=== PATIENT | male | born 1965 | race Caucasian/White ===

== ENCOUNTER 2017-09-11 11:13 | Emergency (ER) | payer SELFPAY ==
[~2017-09-11] VITALS: Ht 182.9 cm; Wt 111.0 kg
[~2017-09-11 11:13] MED LIST: KEFLEX500 MG OR; LORTAB 5 OR; NO HOME MEDS
[2017-09-11 12:00] LABS: HEMATOCRIT 44.7 % (39.0-50.0); HEMOGLOBIN 15.2 g/dl (14.0-18.0); IMMATURE GRANULOCYTES 0.3 % (0.0-1.0); MEAN CORPUSCULAR HGB 31.3 pG CALC (26.0-32.0); NEUT# 8.19 thou/uL (1.82-7.42); RED BLOOD COUNT 4.86 mill/uL (4.70-6.10); RED CELL DISTRI WIDTH 12.3 % (11.5-15.5)
[2017-09-11 12:16] LABS: ALBUMIN 4.2 g/dL (3.2-5.0); ALKALINE PHOSPHATASE 93 u/l (38-126); AMYLASE 54 u/l (30-110); ANION GAP 15 (6-22 (CALC)); BILIRUBIN, TOTAL 1.1 mg/dL (0.0-1.4); BUN 11 mg/dL (9-20); BUN/CREATININE RATIO 13 (12-20 (CALC)); CALCIUM 9.4 mg/dL (8.4-10.2); CARBON DIOXIDE 25 mmol/l (22-30); CHLORIDE 102 mmol/l (95-108); CREATININE 0.9 mg/dL (0.7-1.3); GFR > 60 ML/MIN (>=60 (CALC)); GFR FOR AFR.AMER. > 60 ML/MIN (>=60 (CALC)); GLUCOSE 202 mg/dL (75-110); LIPASE 152 u/l (23-300); POTASSIUM 4.4 mmol/l (3.5-5.1); SGOT/AST 23 u/l (17-59); SGPT/ALT 29 u/l (21-72); SODIUM 137 mmol/l (137-146); TOTAL PROTEIN 7.8 g/dL (6.3-8.2)
[2017-09-11] MEDS ORDERED: ULTRAM50 M1 PO (14:41)
[2017-09-11 14:44] VITALS: BP 140/78
[2017-09-11 14:51] LABS: URINE BILIRUBIN - DIPSTICK NEGATIVE (NEGATIVE); URINE BLOOD DIPSTICK NEGATIVE (NEGATIVE); URINE CLARITY CLEAR; URINE COLOR YELLOW; URINE GLUCOSE - DIPSTICK NEGATIVE (NEGATIVE); URINE KETONE NEGATIVE (NEGATIVE); URINE LEUK ESTERASE NEGATIVE (NEGATIVE); URINE NITRITE - DIPSTICK NEGATIVE (Negative); URINE PROTEIN - DIPSTICK NEGATIVE (NEG-TRACE)
== END 2017-09-11 15:16 | disposition home or self-care (01) | DRG 563 ==
LOC: ED 11:13
PROVIDERS: Emergency Medicine
DX: S39.012A Strain of muscle, fascia and tendon of lower back, initial encounter (principal); E11.65 Type 2 diabetes mellitus with hyperglycemia; Z85.038 Personal history of other malignant neoplasm of large intestine; X58.XXXA Exposure to other specified factors, initial encounter; R33.9 Retention of urine, unspecified; R20.0 Anesthesia of skin
CPT/HCPCS: Q9967

== ENCOUNTER 2018-05-07 19:38 | Emergency (ER) | payer SELFPAY ==
[~2018-05-07] VITALS: Ht 182.9 cm; Wt 110.2 kg
[~2018-05-07 19:38] MED LIST changes: +ULTRAM50 M1 PO
[2018-05-07 21:09] LABS: HEMATOCRIT 43.9 % (39.0-50.0); IMMATURE GRANULOCYTES 0.5 % (0.0-1.0); MEAN CELL VOLUME 90.7 fL CALC (80.0-100.0); MEAN CORPUSCULAR HGB CONC 34.2 g/L CALC (32.0-36.0); NEUT# 7.45 thou/uL (1.82-7.42); RED BLOOD COUNT 4.84 mill/uL (4.70-6.10); RED CELL DISTRI WIDTH 12.5 % (11.5-15.5)
[2018-05-07 21:19] LABS: ALBUMIN 4.3 g/dL (3.2-5.0); ALKALINE PHOSPHATASE 92 u/l (38-126); ANION GAP 15 (6-22 (CALC)); BILIRUBIN, TOTAL 0.3 mg/dL (0.0-1.4); BUN 26 mg/dL (9-20); BUN/CREATININE RATIO 23 (12-20 (CALC)); CARBON DIOXIDE 22 mmol/l (22-30); CHLORIDE 106 mmol/l (95-108); CREATININE 1.1 mg/dL (0.7-1.3); GFR > 60 ML/MIN (>=60 (CALC)); GFR FOR AFR.AMER. > 60 ML/MIN (>=60 (CALC)); POTASSIUM 4.4 mmol/l (3.5-5.1); SGOT/AST 22 u/l (17-59); SGPT/ALT 37 u/l (21-72); SODIUM 139 mmol/l (137-146); TOTAL PROTEIN 7.9 g/dL (6.3-8.2)
[2018-05-07 21:43] LABS: URINE BILIRUBIN - DIPSTICK NEGATIVE (NEGATIVE); URINE BLOOD DIPSTICK TRACE-LYSED (NEGATIVE); URINE COLOR YELLOW; URINE GLUCOSE - DIPSTICK NEGATIVE (NEGATIVE); URINE KETONE NEGATIVE (NEGATIVE); URINE LEUK ESTERASE NEGATIVE (NEGATIVE); URINE NITRITE - DIPSTICK NEGATIVE (Negative); URINE PROTEIN - DIPSTICK NEGATIVE (NEG-TRACE); URINE SPECIFIC GRAVITY >=1.030; URINE UROBILINOGEN - DIPSTICK 0.2 E.U./dL (0.2)
[2018-05-07 21:47] LABS: COCAINE NEGATIVE (NEGATIVE); TETRAHYDROCANNABIONOL POSITIVE (NEGATIVE)
[2018-05-07 21:48] LABS: BARBITURATES NEGATIVE (NEGATIVE); METHADONE NEGATIVE (NEGATIVE); OXCYCODONE NEGATIVE (NEGATIVE); TRICYLIC ANTIDEPRESSANTS NEGATIVE (NEGATIVE); URINE CLARITY CLEAR
[2018-05-07] MEDS ORDERED: KEPPRA500 M2 PO (22:13)
[2018-05-07] MEDS ORDERED: MIRALAX3350 N1 PO (22:13)
[2018-05-07] MEDS ORDERED: NAPROSYN500 MG PO (22:13)
[2018-05-07 23:00] VITALS: BP 145/96
== END 2018-05-07 23:09 | disposition home or self-care (01) | DRG 101 ==
LOC: ED 19:38
PROVIDERS: Emergency Medicine
DX: G40.909 Epilepsy, unspecified, not intractable, without status epilepticus (principal); K59.00 Constipation, unspecified; Z91.14 Patient's other noncompliance with medication regimen
CPT/HCPCS: J1953

== ENCOUNTER 2020-08-16 17:16 | Emergency (ER) | payer MEDICAID ==
[~2020-08-16] VITALS: Ht 182.9 cm; Wt 122.7 kg
[~2020-08-16 17:16] MED LIST changes: +KEPPRA500 M2 PO; +MIRALAX3350 N1 PO; +NAPROSYN500 MG PO
[2020-08-16 18:51] LABS: HEMATOCRIT 45.8 % (39.0-50.0); HEMOGLOBIN 14.7 g/dl (14.0-18.0); IMMATURE GRANULOCYTES 0.3 % (0.0-5.0); MEAN CELL VOLUME 88.6 fL CALC (80.0-100.0); MEAN CORPUSCULAR HGB 28.4 pG CALC (26.0-32.0); MEAN CORPUSCULAR HGB CONC 32.1 g/dL CAL (32.0-36.0); NEUT# 8.47 thou/uL (1.82-7.42); RED BLOOD COUNT 5.17 mill/uL (4.70-6.10); RED CELL DISTRI WIDTH 12.6 % (11.5-15.5)
[2020-08-16 18:57] LABS: ALBUMIN 4.1 g/dL (3.2-5.0); ALKALINE PHOSPHATASE 137 u/l (38-126); ANION GAP 12 (6-22 (CALC)); BILIRUBIN, TOTAL 0.8 mg/dL (0.0-1.4); BUN 20 mg/dL (9-20); BUN/CREATININE RATIO 18 (12-20 (CALC)); CARBON DIOXIDE 25 mmol/l (22-30); CHLORIDE 100 mmol/l (95-108); CREATININE 1.1 mg/dL (0.7-1.3); GFR > 60 ML/MIN (>=60 (CALC)); GFR FOR AFR.AMER. > 60 ML/MIN (>=60 (CALC)); LIPASE 347 u/l (23-300); POTASSIUM 4.5 mmol/l (3.5-5.1); SGOT/AST 28 u/l (17-59); SODIUM 132 mmol/l (137-146)
[2020-08-16 20:32] LABS: URINE BILIRUBIN - DIPSTICK NEGATIVE (NEGATIVE); URINE BLOOD DIPSTICK SMALL (NEGATIVE); URINE COLOR YELLOW; URINE GLUCOSE - DIPSTICK NEGATIVE (NEGATIVE); URINE KETONE NEGATIVE (NEGATIVE); URINE LEUK ESTERASE NEGATIVE (NEGATIVE); URINE NITRITE - DIPSTICK NEGATIVE (Negative); URINE PH 6.5 (4.5-8.0); URINE PROTEIN - DIPSTICK 30 mg/dL (NEG-TRACE); URINE UROBILINOGEN - DIPSTICK 0.2 E.U./dL (0.2)
[2020-08-16 20:43] LABS: URINE WBC 0-2 WBC/hpf (0-5)
[2020-08-16] MEDS ORDERED: ULTRAM50 M1 PO (21:04)
[2020-08-16 21:37] VITALS: BP 139/92
== END 2020-08-16 21:37 | disposition home or self-care (01) ==
LOC: ED 17:16
PROVIDERS: Family Medicine
DX: R10.84 Generalized abdominal pain (principal); I10 Essential (primary) hypertension; R73.9 Hyperglycemia, unspecified; N28.1 Cyst of kidney, acquired; K57.30 Diverticulosis of large intestine without perforation or abscess without bleeding
CPT/HCPCS: Q9967

== ENCOUNTER 2020-09-07 13:10 | Observation (INO) | payer MEDICAID ==
[~2020-09-07] VITALS: Ht 182.9 cm; Wt 120.2 kg
--- NOTE | 2020-09-07 13:10 | NUR ---
TO ROOM VIA W/C AOX4
--- NOTE | 2020-09-07 14:00 | NUR ---
PT PRESENTS WITH ABD PAIN OF 10/10 IN THE RUQ. HE STATES THAT HE HAS HAD CHRONIC PAIN FOR THE LAST 6-9 MO BECAUSE OF HIS INFLAMMED GALLBLADDER. "i NEED TO GET A SURG BAD, NO ONE LISTENS" AFIBRILE. PT HAS LABORED BREATHING AND HE RELATES THAT TO THE INTERM PAIN. DENIES ANY OTHER S/S OR PAINS EXCEPT FOR INTERM NAUSEA. AOX4. [facility]
[2020-09-07 14:32] LABS: HEMATOCRIT 42.3 % (39.0-50.0); HEMOGLOBIN 13.6 g/dl (14.0-18.0); IMMATURE GRANULOCYTES 0.3 % (0.0-5.0); MEAN CELL VOLUME 90.6 fL CALC (80.0-100.0); MEAN CORPUSCULAR HGB 29.1 pG CALC (26.0-32.0); MEAN CORPUSCULAR HGB CONC 32.2 g/dL CAL (32.0-36.0); NEUT# 11.76 thou/uL (1.82-7.42); RED BLOOD COUNT 4.67 mill/uL (4.70-6.10); RED CELL DISTRI WIDTH 12.8 % (11.5-15.5)
[2020-09-07 14:57] LABS: ALKALINE PHOSPHATASE 126 u/l (38-126); AMYLASE 57 u/l (30-110); ANION GAP 12 (6-22 (CALC)); BILIRUBIN, TOTAL 0.5 mg/dL (0.0-1.4); BUN 17 mg/dL (9-20); BUN/CREATININE RATIO 16 (12-20 (CALC)); CARBON DIOXIDE 27 mmol/l (22-30); CHLORIDE 99 mmol/l (95-108); CREATININE 1.1 mg/dL (0.7-1.3); GFR > 60 ML/MIN (>=60 (CALC)); GFR FOR AFR.AMER. > 60 ML/MIN (>=60 (CALC)); LIPASE 129 u/l (23-300); SGOT/AST 21 u/l (17-59); SODIUM 134 mmol/l (137-146); TOTAL PROTEIN 7.8 g/dL (6.3-8.2)
--- NOTE | 2020-09-07 15:00 | NUR ---
WHEN i WAS ASSESSING PT FOR NEEDS HE RESUMED TO START ASKING ME ABOUT MR. RICHIE VIEIRA. HE ASKED ABOUT HIS WHERE ABOUTS AND WHEN DID I LAST SEE HIM. I MENTIONED THAT I AM NOT SURE, HE CONTINUED TO STATE THAT HE HEARD HIM ON THE RADIO AND THAT "I CANNOT STAND TO HEAR THAT VASYLFKER. HE TALKS A LOT OF SH*T" PT CONTINUED ON AND ON WITH DIALOG ALONG THOSE LINES OF HOW MUCH HE HATES HIM AND THAT THE THINGS HE SAYS ARE "BULLST". I WAS CONCERNED BECAUSE OF THE AGGRESIVENESS AND ANGER PT HAD. CHARGE NURSE LAZARO WAS UPDATED ON MY CONCERNS.
[2020-09-07 15:10] LABS: MYOGLOBIN 28 ng/mL (0 - 121)
[2020-09-07 15:28] LABS: URINE BILIRUBIN - DIPSTICK NEGATIVE (NEGATIVE); URINE BLOOD DIPSTICK TRACE-INTACT (NEGATIVE); URINE COLOR YELLOW; URINE GLUCOSE - DIPSTICK 100 mg/dL (NEGATIVE); URINE KETONE NEGATIVE (NEGATIVE); URINE LEUK ESTERASE NEGATIVE (NEGATIVE); URINE NITRITE - DIPSTICK NEGATIVE (Negative); URINE PH 6.5 (4.5-8.0); URINE PROTEIN - DIPSTICK TRACE mg/dL (NEG-TRACE); URINE SPECIFIC GRAVITY 1.015; URINE UROBILINOGEN - DIPSTICK 0.2 E.U./dL (0.2)
--- NOTE | 2020-09-07 16:00 | NUR ---
PT RESTING WITH EYES CLOSED. CALL LIGHT WITHIN REACH
--- NOTE | 2020-09-07 17:30 | NUR ---
PT RESTING ON STREATCHER RESTING WITH EYES CLOSED. CALL LIGHT WITHIN REACH
--- NOTE | 2020-09-07 18:46 | NUR ---
ATTEMPTED TO GIVE REPORT, NURSE SAYS SHE IS IN THE MIDDLE OF GETTING REPORT FROM DAYTIME NURSE
--- NOTE | 2020-09-07 18:56 | NUR ---
GAVE REPORT TO LUPE
--- NOTE | 2020-09-07 19:07 | NUR ---
Admission Note Report Given to: LULA DUFF Transported by: Wheelchair X Stretcher Transported with: X Nurse Transporter X Patent IV O2 X Laydown Machine Operator Location: ICU X MS2
[2020-09-07 19:21] VITALS: BP 164/110
--- NOTE | 2020-09-07 19:21 | NUR ---
PT ARRIVES TO UNIT AT 192 VIA STRETCHER, ACCOMPANIED BY Carlos MULLINS, ADMITTED TO ROOM 263.
--- NOTE | 2020-09-07 20:15 | NUR ---
ADMISSION AND PHYSICAL ASSESMENT COMPLETE. PT IS DROWSY BUT ROUSABLE. STATES "I DONT KNOW WHY IM SO TIRED". REPORTS LAST BM 3-4 DAYS AGO. REPORTS CONSTIPATION IS CHRONIC IN NATURE. REPORTS ANAL "PROTRUSION" THAT CAUSES HIM TO HAVE TO STRAIN HARD TO PASS STOOL. REPORTS RIGHT INGUINAL AND LEFT ABDOMINAL PROTRUSIONS. PT DESCRIBES PROTRUSIONS "HERNIAS". STATES HE HASN'T EATEN FOR 3-DAYS. OFFERED PT AFTER HOURS MEAL TRAY, PT DECLINES, STATES "I JUST NEED TO GO TO SLEEP". PT DENIES PAIN AT THIS TIME. DENIES FURTHER NEEDS. CALL MCDERMOTT WITHIN REACH, AGREES TO CALL PRN. BAD LOCKED IN LOW POSITION WITH BEDRAILS UP X2.
--- NOTE | 2020-09-07 21:01 | NUR ---
SPOKE W/ Latosha BUSH APRN REGARDING PT ASSESMENT AND ELEVATED NIBP. CLARIFICATION OF ORDERS RECEIVED TO [facility].
[2020-09-08] VITALS: BP 161/95
--- NOTE | 2020-09-08 00:46 | NUR ---
PT APPEARS TO BE SLEEPING COMFORTABLY, NO APPARENT DISTRESS, RESPIRATIONS REGULAR AND UNLABORED. CALL MCDERMOTT REMAINS WITHIN REACH. BED REMAINS LOCKED IN LOW POSITION WITH BEDRAILS UP X2.
[2020-09-08 04:00] VITALS: BP 147/90
[2020-09-08 05:40] LABS: HEMATOCRIT 43.5 % (39.0-50.0); MEAN CELL VOLUME 91.2 fL CALC (80.0-100.0); MEAN CORPUSCULAR HGB 29.4 pG CALC (26.0-32.0); MEAN CORPUSCULAR HGB CONC 32.2 g/dL CAL (32.0-36.0); RED BLOOD COUNT 4.77 mill/uL (4.70-6.10); RED CELL DISTRI WIDTH 12.7 % (11.5-15.5)
[2020-09-08 06:00] LABS: ALBUMIN 3.7 g/dL (3.2-5.0); ALKALINE PHOSPHATASE 122 u/l (38-126); ANION GAP 12 (6-22 (CALC)); BILIRUBIN, TOTAL 0.7 mg/dL (0.0-1.4); BUN 16 mg/dL (9-20); BUN/CREATININE RATIO 15 (12-20 (CALC)); CALCULATED LDLCHOLESTEROL 161 mg/dL (62-129 (CALC)); CARBON DIOXIDE 27 mmol/l (22-30); CHLORIDE 99 mmol/l (95-108); CHOLESTEROL HDL RATIO 6.2 (<4.4 (CALC)); CREATININE 1.1 mg/dL (0.7-1.3); GFR > 60 ML/MIN (>=60 (CALC)); GFR FOR AFR.AMER. > 60 ML/MIN (>=60 (CALC)); HDL CHOLESTEROL 37 mg/dL (>=40); POTASSIUM 4.3 mmol/l (3.5-5.1); SGOT/AST 19 u/l (17-59); SODIUM 134 mmol/l (137-146); TOTAL CHOLESTEROL 228 mg/dl (0-199); TOTAL PROTEIN 6.8 g/dL (6.3-8.2); TOTAL TRIGLYCERIDES 148 mg/dl (30-149); VLDL CHOLESTROL 30 mg/dl (8-62 (CALC))
--- NOTE | 2020-09-08 07:15 | NUR ---
REPORT RECEIVED FROM LULA DUFF;PT APPEARS TO BE SLEEPING IN SUPINE POSITION;NO S/S OF DISTRESS NOTED;RESPIRATIONS EVEN AND UNLABORED ON RA;TELE MONITORING IN PLACE;ALL SAFETY PRECAUTIONS IN PLACE WITH BED IN THE LOWEST POSITION AND CALL LIGHT IN REACH;WILL CONTINUE TO MONITOR
--- NOTE | 2020-09-08 08:39 | NUR ---
AT BEDSIDE DISCUSSING POC WITH PT.
[2020-09-08 08:43] VITALS: BP 161/111
--- NOTE | 2020-09-08 08:45 | NUR ---
PT RESTING IN SEMI FOWLERS POSITION,A&O X3;VS OBTAINED AND ASSESSMENT COMPLETED, CURRENT BP 161/111 HR 103;PT TO BE MEDICATED WITH MORNING BP MEDICATION PER ANRP;PT REPORTS ABDOMINAL PAIN AND REQUESTS PAIN MEDICATION, ANRP NOTIFIED OF REQUEST;PT CURRENTLY NPO AND VERBALIZES UNDERSTANDING;RESPIRATIONS EVEN AND UNLABORED ON RA,CLEAR LUNG SOUNDS;ABDOMEN DISTENDED/SOFT ON PALPATION AND ACTIVE IN ALL 4 QUADRANTS;STRONG PEDAL PULSES;SKIN INTACT;TELE MONITORING IN PLACE;#20G TO RIGHT HAND FLUSHED AND PATENT,SITE APPEARS HEALTHY;PT DENIES ANY ADDITIONAL NEEDS AT THIS TIME AND IS ENCOURAGED TO CALL FOR ASSISTANCE IF NEEDED;FALL PRECAUTIONS IN PLACE WITH BED IN THE LOWEST POSITION AND CALL LIGHT IN REACH;WILL CONTINUE TO MONITOR
[2020-09-08 10:24] VITALS: BP 133/95
--- NOTE | 2020-09-08 10:24 | NUR ---
BP RE-CHECK 133/95 HR 89
--- NOTE | 2020-09-08 11:15 | NUR ---
PT APPEARS TO BE SLEEPING IN SEMI FOWLERS POSITION;NO S/S OF DISTRESS NOTED;TELE MONITORING IN PLACE;IV SITE PATENT;NPO DIET REMAINS IN PLACE;ASSESSMENT REMAINS UNCHANGED AT THIS TIME;FALL PRECAUTIONS IN PLACE WITH BED IN THE LOWEST POSITION AND CALL LIGHT IN REACH;WILL CONTINUE TO MONITOR
--- NOTE | 2020-09-08 11:44 | NUR ---
LAB AT BEDSIDE
--- NOTE | 2020-09-08 11:55 | NUR ---
PT TRANSPORTED TO [facility] [place] IN STABLE CONDITION VIA WHEELCHAIR ACCOMPANIED BY KEEGAN FLOWER.
--- NOTE | 2020-09-08 12:20 | NUR ---
PT TRANSPORTED BACK TO MED/SURG ROOM 263 IN STABLE CONDITION VIA WHEELCHAIR ACCOMPANIED BY KEEGAN FLOWER.
--- NOTE | 2020-09-08 12:25 | NUR ---
PT REPORTS ABDOMINAL PAIN RATING 6/10 ON THE PAIN SCALE AND NAUSEA, PT MEDICATED WITH MORPHINE 4MG SLOW IVP AND ZOFRAN 4MG IVP AT THIS TIME;PT DENIES ANY ADDITIONAL NEEDS;CALL LIGHT IN REACH;WILL CONTINUE TO MONITOR
[2020-09-08 15:20] VITALS: BP 144/86
--- NOTE | 2020-09-08 15:25 | NUR ---
PT RESTING IN SEMI FOWLERS POSITION;RESPIRATIONS EVEN AND UNLABORED ON RA;PT REPORTS ABDOMINAL IS NOW A 2/10 AFTER PAIN MEDICATION ADMINISTRATION;IV SITE PATENT;TELE MONITORING IN PLACE;PT DENIES ANY ADDITIONAL NEEDS AT THIS TIME;FRESH WATER PROVIDED;ENCOURAGED TO CALL FOR ASSISTANCE IF NEEDED;FALL PRECAUTIONS REMAIN IN PLACE WITH CALL LIGHT IN REACH;WILL CONTINUE TO MONITOR
--- NOTE | 2020-09-08 15:45 | NUR ---
ANY ANRP AT BEDSIDE
[2020-09-08 19:00] VITALS: BP 139/97
--- NOTE | 2020-09-08 19:16 | NUR ---
REPORT FROM OCTAVIANO MAYORGA. PT UP IN SHOWER AT THIS TIME. DENIES ANY CURRENT NEEDS AT THIS TIME.
--- NOTE | 2020-09-08 21:18 | NUR ---
PT MEDICATED ORDERED. SNACK PROVIDED UPON REQUEST. NO OTHER WANTS OR NEEDS NOTED. PT TALKING ON PHONE AT THIS TIME. CALL LIGHT WITHIN REACH. WILL CONTINUE TO MONITOR.
[2020-09-09] VITALS: BP 146/106
--- NOTE | 2020-09-09 00:58 | NUR ---
PT RESTING IN BED WITH EYES CLOSED. NO APPARENT DISTRESS NOTED. REGIONAL SALES REPRESENTATIVE IN PLACE. CALL LIGHT WITHIN REACH. WILL CONTINUE TO MONITOR.
[2020-09-09 04:00] VITALS: BP 122/79
--- NOTE | 2020-09-09 04:17 | NUR ---
EMERGENCY MEDCL EMT IN ROOM TO OBTAIN LABS.
[2020-09-09 05:34] LABS: HEMATOCRIT 42.9 % (39.0-50.0); HEMOGLOBIN 13.7 g/dl (14.0-18.0); IMMATURE GRANULOCYTES 0.2 % (0.0-5.0); MEAN CELL VOLUME 91.9 fL CALC (80.0-100.0); MEAN CORPUSCULAR HGB 29.3 pG CALC (26.0-32.0); MEAN CORPUSCULAR HGB CONC 31.9 g/dL CAL (32.0-36.0); NEUT# 6.53 thou/uL (1.82-7.42); RED BLOOD COUNT 4.67 mill/uL (4.70-6.10); RED CELL DISTRI WIDTH 12.8 % (11.5-15.5)
[2020-09-09 05:53] LABS: ALBUMIN 3.5 g/dL (3.2-5.0); ALKALINE PHOSPHATASE 115 u/l (38-126); ANION GAP 12 (6-22 (CALC)); BUN 24 mg/dL (9-20); BUN/CREATININE RATIO 16 (12-20 (CALC)); CARBON DIOXIDE 30 mmol/l (22-30); CHLORIDE 98 mmol/l (95-108); CREATININE 1.4 mg/dL (0.7-1.3); GFR 53 ML/MIN (>=60 (CALC)); GFR FOR AFR.AMER. > 60 ML/MIN (>=60 (CALC)); POTASSIUM 4.6 mmol/l (3.5-5.1); SGOT/AST 18 u/l (17-59); SODIUM 135 mmol/l (137-146); TOTAL PROTEIN 6.5 g/dL (6.3-8.2)
[2020-09-09 05:54] LABS: BILIRUBIN, TOTAL 0.4 mg/dL (0.0-1.4)
[2020-09-09 08:00] VITALS: BP 150/80
--- NOTE | 2020-09-09 08:00 | NUR ---
PATIENT ASSESSMENT DONE AT THIS TIME SEE INTERVIENTION. UPON ENTERING ROOM IT WAS NOTICED THAT PATIENTS IV IN RIGHT HAND WAS DISLODGED AT THIS TIME. IV SITE HAS NO SIGNS OF SWELLING OR INFECTION. ANGELA ENCARNACION NOTIFIED AND STATED TO LEAVE IV OUT AT THIS TIME. PATIENT ALERT AND ORIENTED AND STATES PAIN LEVEL IS A 4 AND IS LOCATED IN HIS UPPER RT. QUAD. SCHUYLER WAS REPOSITIONED AT THIS TIME. STATED HE HASN'T HAD A BOWEL MOVEMENT IN A FEW DAYS BUT STATES " I HAVE GONE 10 DAYS BEFORE AND HAVE TO USE MY FINGER TO DIG IT OUT". PATIENT STATED "I HAVE GAS". PATIENT'S ABD. IS SOFT AND BOWEL SOUNDS PRESENT. IS AWARE OF PATIENT'S CONSTIPATION AND PATIENT IS BEING TREATED AT THIS TIME. PATIENT DENIES ALL OTHER COMPLAINTS AT THIS TIME.
[2020-09-09] MEDS ORDERED: METFORMIN500 M2 PO (10:18)
[2020-09-09] MEDS ORDERED: AMLODIPINE BESY10 MG PO ×2 (10:18→10:45)
[2020-09-09] MEDS ORDERED: LISINOPRIL10 MG PO (10:45)
[2020-09-09 11:11] VITALS: BP 160/94
--- NOTE | 2020-09-09 13:51 | NUR ---
PATIENT LYING IN BED WITH EYES CLOSED. RESPIRATIONS EVEN AND UNLABORED AT THIS TIME. ALL SAFTEY MEASURES ARE IN PLACE. SIDERAILS UP X 2.
--- NOTE | 2020-09-09 15:15 | NUR ---
PATIENT UP TO BATHROOM AND REPORTS LARGE BM X4. STOOL LT. BROWN IN COLOR AND SOFT. PATIENT STATED "I FEEL MUCH BETTER" AT THIS TIME. PATIENT DENIES ANY NEEDS AT THIS TIME. PATIENT NOTED TO HAVE TELE MONITOR OFF AND REFUSES TO PUT IT BACK ON STATING "I'M LEAVING IN AN HOUR". ER (MONITORING SITE) NOTIFIED.
[2020-09-09 16:06] VITALS: BP 164/99
--- NOTE | 2020-09-09 16:33 | NUR ---
GONE OVER PATIENT DISCHARGE INFORMATION AND EDUCATION. PATIENT HANDED NEW MEDICATION PRESCRIPTIONS; NORVASC 5 MG, LISINOPRIL 10MG AND METFORMIN 500MG. PATIENT ADVISED THAT HE HAS A NUCLEAR MEDICINE TEST (HIDA) TO BE COMPLETED ON Saturday09-12-2020 AND TO CALL AT O800 AM TO VERIFY TIME. PATIENT REMINDED TO FOLLOW UP WITH ALL OUTSIDE APPOINTMENTS WRITTEN IN D/C PAPERWORK. PATIENT VERBALIZES ALL UNDERSTANDING OF DISCHARGE PAPERWORK AT THIS TIME AND DENIES ANY NEEDS.
--- NOTE | 2020-09-09 17:15 | NUR ---
PATIENT D/C AT THIS TIME AND TAKEN DOWNSTAIRS VIA WHEELCHAIR. PATIENT BELONGING WE OBTAINED BY PATIENT AND STATES " I HAVE EVERYTHING". PATIENT RELASED TO SON AT THIS TIME AND DENIES NO OTHER NEEDS.
== END 2020-09-09 17:15 | disposition home or self-care (01) ==
LOC: ED 13:10 → ED-I 17:48 → ED 17:56 → MS2 17:57
PROVIDERS: Emergency Medicine; Nurse Practitioner; Nurse Practitioner Family; ADMIT Internal Medicine; ATTEND Internal Medicine
DX: R07.9 Chest pain, unspecified (principal); R10.11 Right upper quadrant pain; E11.9 Type 2 diabetes mellitus without complications; I10 Essential (primary) hypertension; K59.00 Constipation, unspecified; R16.0 Hepatomegaly, not elsewhere classified; Z20.828 Contact with and (suspected) exposure to other viral communicable diseases
CPT/HCPCS: G0378; J1650; Q9967

== ENCOUNTER 2020-09-22 13:39 | Emergency (ER) | payer MEDICAID ==
[~2020-09-22] VITALS: Ht 182.9 cm; Wt 125.0 kg
[~2020-09-22 13:39] MED LIST changes: +AMLODIPINE BESY10 MG PO; +LISINOPRIL10 MG PO; +METFORMIN500 M2 PO
[2020-09-22] MEDS ORDERED: DICYCLOMINE20 MG PO (14:12)
[2020-09-22] MEDS ORDERED: TAMSULOSIN HCL0.4 MG PO (14:12)
[2020-09-22 15:37] LABS: HEMATOCRIT 42.2 % (39.0-50.0); HEMOGLOBIN 13.7 g/dl (14.0-18.0); IMMATURE GRANULOCYTES 0.2 % (0.0-5.0); MEAN CELL VOLUME 90.8 fL CALC (80.0-100.0); MEAN CORPUSCULAR HGB 29.5 pG CALC (26.0-32.0); MEAN CORPUSCULAR HGB CONC 32.5 g/dL CAL (32.0-36.0); NEUT# 6.17 thou/uL (1.82-7.42); RED BLOOD COUNT 4.65 mill/uL (4.70-6.10); RED CELL DISTRI WIDTH 12.7 % (11.5-15.5)
[2020-09-22 16:03] LABS: ALBUMIN 3.8 g/dL (3.2-5.0); BILIRUBIN, TOTAL 0.4 mg/dL (0.0-1.4); CREATININE 1.5 mg/dL (0.7-1.3); POTASSIUM 5.1 mmol/l (3.5-5.1); TOTAL PROTEIN 7.1 g/dL (6.3-8.2)
[2020-09-22 16:32] LABS: PROTHROMBIN TIME 10.3 SECONDS (9.0-12.5)
[2020-09-22 18:21] VITALS: BP 140/82
== END 2020-09-22 18:00 | disposition short-term general hospital (02) ==
LOC: ED 13:39
PROVIDERS: Family Medicine
DX: I20.0 Unstable angina (principal); I10 Essential (primary) hypertension; E11.9 Type 2 diabetes mellitus without complications; Z79.84 Long term (current) use of oral hypoglycemic drugs
CPT/HCPCS: J1644

== ENCOUNTER 2020-12-06 20:01 | Emergency (ER) | payer MEDICAID ==
[~2020-12-06] VITALS: Ht 182.9 cm; Wt 122.7 kg
[~2020-12-06 20:01] MED LIST changes: +DICYCLOMINE20 MG PO; +TAMSULOSIN HCL0.4 MG PO
[2020-12-06 20:57] LABS: HEMATOCRIT 41.2 % (39.0-50.0); HEMOGLOBIN 13.2 g/dl (14.0-18.0); IMMATURE GRANULOCYTES 0.3 % (0.0-5.0); MEAN CELL VOLUME 91.2 fL CALC (80.0-100.0); MEAN CORPUSCULAR HGB 29.2 pG CALC (26.0-32.0); NEUT# 10.13 thou/uL (1.82-7.42); RED BLOOD COUNT 4.52 mill/uL (4.70-6.10); RED CELL DISTRI WIDTH 12.9 % (11.5-15.5)
[2020-12-06 21:02] LABS: URINE BILIRUBIN - DIPSTICK NEGATIVE (NEGATIVE); URINE BLOOD DIPSTICK SMALL (NEGATIVE); URINE COLOR YELLOW; URINE GLUCOSE - DIPSTICK 100 mg/dL (NEGATIVE); URINE KETONE NEGATIVE (NEGATIVE); URINE LEUK ESTERASE NEGATIVE (NEGATIVE); URINE NITRITE - DIPSTICK NEGATIVE (Negative); URINE PROTEIN - DIPSTICK 30 mg/dL (NEG-TRACE); URINE SPECIFIC GRAVITY 1.025; URINE UROBILINOGEN - DIPSTICK 0.2 E.U./dL (0.2)
[2020-12-06 21:04] LABS: URINE RBC 0-2 RBC/hpf (0-5); URINE WBC 0-2 WBC/hpf (0-5)
[2020-12-06 21:15] LABS: ALBUMIN 3.8 g/dL (3.2-5.0); ALKALINE PHOSPHATASE 122 u/l (38-126); BUN 24 mg/dL (9-20); BUN/CREATININE RATIO 19 (12-20 (CALC)); CHLORIDE 100 mmol/l (95-108); CREATININE 1.3 mg/dL (0.7-1.3); GFR 57 ML/MIN (>=60 (CALC)); GFR FOR AFR.AMER. > 60 ML/MIN (>=60 (CALC)); POTASSIUM 4.3 mmol/l (3.5-5.1); SGOT/AST 23 u/l (17-59); SODIUM 136 mmol/l (137-146); TOTAL PROTEIN 7.4 g/dL (6.3-8.2)
[2020-12-06 21:17] LABS: ANION GAP 11 (6-22 (CALC)); BILIRUBIN, TOTAL 0.9 mg/dL (0.0-1.4); CARBON DIOXIDE 29 mmol/l (22-30)
[2020-12-06 21:27] LABS: MYOGLOBIN 40 ng/mL (0 - 121)
[2020-12-06] MEDS ORDERED: LISINOPRIL10 MG PO (22:06)
[2020-12-06] MEDS ORDERED: METFORMIN500 M2 PO (22:06)
[2020-12-06] MEDS ORDERED: AMLODIPINE BESY10 MG PO (22:06)
[2020-12-06 22:52] VITALS: BP 173/93
== END 2020-12-06 22:52 | disposition home or self-care (01) ==
LOC: ED 20:01
PROVIDERS: Emergency Medicine
DX: E11.65 Type 2 diabetes mellitus with hyperglycemia (principal); I10 Essential (primary) hypertension; Z79.84 Long term (current) use of oral hypoglycemic drugs; T42.76XA Underdosing of unspecified antiepileptic and sedative-hypnotic drugs, initial encounter; T46.5X6A Underdosing of other antihypertensive drugs, initial encounter; T38.3X6A Underdosing of insulin and oral hypoglycemic [antidiabetic] drugs, initial encounter; Z91.128 Patient's intentional underdosing of medication regimen for other reason; Z20.822 Contact with and (suspected) exposure to COVID-19

== ENCOUNTER 2021-05-25 14:38 | Observation (INO) | payer MEDICAID ==
[~2021-05-25] VITALS: Ht 182.9 cm; Wt 131.0 kg
--- NOTE | 2021-05-25 14:42 | NUR ---
TO ROOM FOR TRIAGE
[2021-05-25 15:15] LABS: HEMATOCRIT 45.5 % (39.0-50.0); IMMATURE GRANULOCYTES 0.3 % (0.0-5.0); MEAN CELL VOLUME 88.5 fL CALC (80.0-100.0); MEAN CORPUSCULAR HGB 29.2 pG CALC (26.0-32.0); NEUT# 8.02 thou/uL (1.82-7.42); RED BLOOD COUNT 5.14 mill/uL (4.70-6.10); RED CELL DISTRI WIDTH 12.9 % (11.5-15.5)
[2021-05-25 15:26] LABS: ALBUMIN 3.8 g/dL (3.2-5.0); ALKALINE PHOSPHATASE 118 u/l (38-126); ANION GAP 15 (6-22 (CALC)); BILIRUBIN, TOTAL 0.8 mg/dL (0.0-1.4); BUN 21 mg/dL (9-20); BUN/CREATININE RATIO 17 (12-20 (CALC)); CARBON DIOXIDE 26 mmol/l (22-30); CHLORIDE 98 mmol/l (95-108); CREATININE 1.3 mg/dL (0.7-1.3); GFR 57 ML/MIN (>=60 (CALC)); GFR FOR AFR.AMER. > 60 ML/MIN (>=60 (CALC)); POTASSIUM 4.7 mmol/l (3.5-5.1); SGOT/AST 22 u/l (17-59); SODIUM 134 mmol/l (137-146); TOTAL PROTEIN 7.2 g/dL (6.3-8.2)
--- NOTE | 2021-05-25 15:45 | NUR ---
RESTING QUIETLY, CALL MCDERMOTT AT BEDSIDE
--- NOTE | 2021-05-25 16:45 | NUR ---
RESP EASY, STABLE, CALL MCDERMOTT IN REACH
--- NOTE | 2021-05-25 17:45 | NUR ---
DR DUNCAN TO BEDSIDE TO DISCUSS FINDINGS.
--- NOTE | 2021-05-25 18:12 | NUR ---
PATIENT STATES HE DOES NOT KNOW WHAT MEDICATION HE TAKES FOR BLOOD PRESSURE. PHARMACY CONSULT PLACED.
--- NOTE | 2021-05-25 18:50 | NUR ---
PATIENT HAS HAD 1000 OF CLEAR YELLOW URINE OUT.
--- NOTE | 2021-05-25 19:00 | NUR ---
REPORT RECEIVED FROM Jozef ROTH RN, CARE OF PT ASSUMED AT THIS TIME.
--- NOTE | 2021-05-25 19:01 | NUR ---
TELEPHONE REPORT RECEIVED FROM Narayan KATZ RN IN ED. ROOM 289 PREPARED TO RECEIVE PT.
--- NOTE | 2021-05-25 19:02 | NUR ---
REPORT TO LULA DUFF AT THIS TIME.
--- NOTE | 2021-05-25 19:11 | NUR ---
PT ARRIVES TO UNIT @ 191 VIA STRETCHER ACCOMPANIED BY Narayan KATZ RN. PT TO ROOM 289. PT SET UP AND ORIENTED TO UNIT AND ROOM BY Marquita DEAN CNA.
[2021-05-25 19:12] VITALS: BP 173/91
--- NOTE | 2021-05-25 19:50 | NUR ---
ADMISSION AND ASSESMENT COMPLETED. PT IS A/O X3, PLEASANT AND COOPERATIVE AND TALKATIVE. ANSWERS QUESTIONS READILY. NO APPARENT RESPIRATORY DISTRESS OR INCREASED WORK OF BREATHING. REPORTS SOB WORSENS WITH EXERTION. LUNGS CLEAR, AUSCAULTATION LIMITED SECONDARY TO BODY HABITUS. LARGE ROUNDED ABD, SOFT, NON-TENDER. LARGE LEFT SIDE HERNIA. BOWEL SOUNDS ACTIVE. REPORTS NO BM X4 DAYS. PT STATES HERNIA OBSTRUCT ABILITY TO DEFECATE AND HE DIGITALLY REMOVES HIS STOOL ABOUT EVERY 6 DAYS. PT ALSO REPORT SLOW STREAM/ DIFFICULTY STARTING STREAM WHEN URINATING SECONDARY TO HERNIA. PT REPORTS HE HAS DISCUSSED THESE ISSUES WITH HIS PCP. NO EDEMA NOTED TO BLE, C/M/S INTACT. PT REQUESTS FOOD, DENIES FURTHER NEEDS. PLAN OF CARE REVIEWED, PT VERBALIZES UNDERSTANDING. CALL MCDERMOTT WITHIN REACH, AGREES TO CALL PRN.
--- NOTE | 2021-05-25 20:00 | NUR ---
POINT OF CARE GLUCOSE 152mg/dl REPORTED BY Marquita DEAN CNA.
--- NOTE | 2021-05-25 20:52 | NUR ---
SCHEDULED MEDICATION ADMINISTERED, SEE E-MAR.
[2021-05-25 22:58] LABS: URINE BILIRUBIN - DIPSTICK NEGATIVE (NEGATIVE); URINE BLOOD DIPSTICK TRACE-INTACT (NEGATIVE); URINE CLARITY CLEAR; URINE COLOR YELLOW; URINE GLUCOSE - DIPSTICK NEGATIVE (NEGATIVE); URINE KETONE NEGATIVE (NEGATIVE); URINE LEUK ESTERASE NEGATIVE (Negative); URINE NITRITE - DIPSTICK NEGATIVE (Negative); URINE PROTEIN - DIPSTICK NEGATIVE (NEG-TRACE); URINE UROBILINOGEN - DIPSTICK 0.2 E.U./dL (0.2)
[2021-05-25 23:30] VITALS: BP 130/68
--- NOTE | 2021-05-26 00:06 | NUR ---
Latosha THOMPSON INSTANT POTATO PROCESSOR IN ROOM TO COLLECT LAB WORK.
[2021-05-26 04:00] VITALS: BP 140/96
[2021-05-26 06:27] LABS: HEMATOCRIT 47.7 % (39.0-50.0); HEMOGLOBIN 15.6 g/dl (14.0-18.0); MEAN CELL VOLUME 88.2 fL CALC (80.0-100.0); MEAN CORPUSCULAR HGB 28.8 pG CALC (26.0-32.0); MEAN CORPUSCULAR HGB CONC 32.7 g/dL CAL (32.0-36.0); RED BLOOD COUNT 5.41 mill/uL (4.70-6.10); RED CELL DISTRI WIDTH 12.9 % (11.5-15.5)
[2021-05-26 06:42] LABS: ANION GAP 15 (6-22 (CALC)); BUN 24 mg/dL (9-20); BUN/CREATININE RATIO 17 (12-20 (CALC)); CALCULATED LDLCHOLESTEROL 179 mg/dL (62-129 (CALC)); CARBON DIOXIDE 26 mmol/l (22-30); CHLORIDE 98 mmol/l (95-108); CHOLESTEROL HDL RATIO 5.9 (<4.4 (CALC)); CREATININE 1.4 mg/dL (0.7-1.3); GFR 52 ML/MIN (>=60 (CALC)); GFR FOR AFR.AMER. > 60 ML/MIN (>=60 (CALC)); HDL CHOLESTEROL 43 mg/dL (>=40); MAGNESIUM 1.8 mg/dL (1.6-2.3); POTASSIUM 4.4 mmol/l (3.5-5.1); SODIUM 134 mmol/l (137-146); TOTAL CHOLESTEROL 254 mg/dl (0-199); TOTAL TRIGLYCERIDES 165 mg/dl (30-149); VLDL CHOLESTROL 33 mg/dl (8-62 (CALC))
--- NOTE | 2021-05-26 07:34 | NUR ---
PT note Patient is screened for PT intervention and no needs are identified at this time
[2021-05-26 08:10] VITALS: BP 160/76
--- NOTE | 2021-05-26 08:10 | NUR ---
PT LAYING IN BED. PATIENT ALERT AND ORIENTED. VITALS AND ASSESSMENT DONE. LUNGS SOUND CLEAR BILATERALLY. S1 AND S2 HEARD. PEDAL PULSES EQUALLY STRONG BILATERALLY. IV PATENT AND HEALTHY.
--- NOTE | 2021-05-26 08:20 | NUR ---
PT SLEEP WHEN ENTERED ROOM. VITAL AND ASSESSMENTS DONE. PT IS ALERT AND ORIENTED. LUNG SOUNDS CLEAR BILATERALLY. S1 AND S2 HEARD. PEDAL PULSES STRONG BILATERALLY. IV PATENT AND HEALTHY.
--- NOTE | 2021-05-26 09:50 | NUR ---
Stephan FERNANDEZ APRN AND DR ROBINS AT BEDSIDE DISCUSSING POC
[2021-05-26 11:00] VITALS: BP 122/94
--- NOTE | 2021-05-26 11:00 | NUR ---
[employer] RELEASE FORM SIGNED BY PATIENT, PT AGREEABLE TO OBTAIN MEDICAL RECORDS FROM [facility]. REQUEST FORM SENT TO [facility].
--- NOTE | 2021-05-26 12:00 | NUR ---
PATIENT IN BED. NO DISTRESS NOTED. CALL LIGHT WITHIN REACH.
[2021-05-26 14:53] VITALS: BP 121/82
--- NOTE | 2021-05-26 16:00 | NUR ---
PATIENT WAS SLEEP WHEN ENTERED ROOM. NO DISTRESS NOTED. CALL LIGHT WITHIN REACH.
--- NOTE | 2021-05-26 19:00 | NUR ---
REPORT RECEIVED FROM Jozef BAILEY RN, CARE OF PT ASSUMED AT THIS TIME.
[2021-05-26 19:20] VITALS: BP 118/73
--- NOTE | 2021-05-26 20:00 | NUR ---
PT LAYING IN BED, NO APPARENT DISTRESS. PHYSICAL ASSESMENT COMPLETED, SEE SHIFT ASSESMENT. RESPIRATIONS REGULAR AND UNLABORED. SPO2 94% ON ROOM AIR. LUNG SOUNDS CLEAR. TELE #[id number] ST 108 WITH PACs. L-FA #20G SL PATENT. POINT OF CARE GLUCOSE 192mg/dl. ICE CREAM CUP PROVIDED PER PTS REQUEST, PT DENIES FURTHER NEEDS AT THIS TIME. PLAN OF CARE REVIEWED, PT VERBALIZES UNDERSTANDING. CALL MCDERMOTT WITHIN REACH. AGREES TO CALL PRN.
--- NOTE | 2021-05-26 20:24 | NUR ---
SCHEDULED MEDICATIONS ADMINISTERED, SEE E-MAR. PRIOR TO ADMINISTRATION VERBAL EDUCATION PROVIDED ON MEDICATIONS. PT VERBALIZES UNDERSTANDING AND DENIES QUESTIONS.
[2021-05-26 22:50] VITALS: BP 131/85
--- NOTE | 2021-05-27 00:15 | NUR ---
PT APPEARS TO BE SLEEPING COMFORTABLY, LAYING IN BED WITH EYES CLOSED. RESPIRATIONS REGUALR AND UNLABORED, NO APPARENT DISTRESS OR DISCOMFORT. CALL MCDERMOTT REMAINS WITHIN REACH.
[2021-05-27 03:40] VITALS: BP 123/84
--- NOTE | 2021-05-27 04:08 | NUR ---
CALL RECEIVED FROM Omar PIEDRA, BOAT AND PLANT UTILITY SUPERVISOR @ 0404 PT CONVERTED TO SVT @ APPROX 0401. UPON ENTERING ROOM PT STATES HE JUST WOKE UP AND HE WAS HAVING A "CRAZY DREAM". DENIES PALPITATIONS OR ANY SYPMTOMOLOGY. PT IS INSTRUCTED ON PERFORMING VALSALVAS MANUVER. AT APPROX 0408 PT RETURNS TO BASELINE RYTHM OF SR-ST 90s-110s. Xuan VITALE AT BEDSIDE PERFORMING 12-LEAD EKG.
[2021-05-27 04:10] VITALS: BP 140/96
[2021-05-27 05:33] LABS: HEMATOCRIT 47.5 % (39.0-50.0); HEMOGLOBIN 15.6 g/dl (14.0-18.0); MEAN CELL VOLUME 88.5 fL CALC (80.0-100.0); MEAN CORPUSCULAR HGB 29.1 pG CALC (26.0-32.0); MEAN CORPUSCULAR HGB CONC 32.8 g/dL CAL (32.0-36.0); RED BLOOD COUNT 5.37 mill/uL (4.70-6.10); RED CELL DISTRI WIDTH 12.9 % (11.5-15.5)
[2021-05-27 05:50] LABS: ANION GAP 12 (6-22 (CALC)); BUN 30 mg/dL (9-20); BUN/CREATININE RATIO 21 (12-20 (CALC)); CARBON DIOXIDE 26 mmol/l (22-30); CHLORIDE 101 mmol/l (95-108); CREATININE 1.4 mg/dL (0.7-1.3); GFR 52 ML/MIN (>=60 (CALC)); GFR FOR AFR.AMER. > 60 ML/MIN (>=60 (CALC)); MAGNESIUM 1.9 mg/dL (1.6-2.3); POTASSIUM 4.8 mmol/l (3.5-5.1); SODIUM 134 mmol/l (137-146)
--- NOTE | 2021-05-27 06:04 | NUR ---
PT APPEARS TO BE SLEEPING COMFORTABLY, LAYING IN BED WITH EYES CLOSED. RESPIRATIONS REGUALR AND UNLABORED, NO APPARENT DISTRESS OR DISCOMFORT. CALL MCDERMOTT REMAINS WITHIN REACH.
[2021-05-27 07:20] VITALS: BP 144/88
--- NOTE | 2021-05-27 07:50 | NUR ---
PATIENT SLEEPING UPON ENTERING ROOM. VITALS AND ASSESSMENT PERFORMED.PT IS ALERT AND ORIENTED. S1 AND S2 NOTED. BOWEL SOUNDS ACTIVE. PEDAL PULSES BILATERALLY EQUAL AND STRONG. NO DISTRESS NOTED.
--- NOTE | 2021-05-27 10:03 | NUR ---
DR SETH AND Zoe MILLER APRN AT [facility] DISCUSSING POC
[2021-05-27 10:15] VITALS: BP 138/94
[2021-05-27] MEDS ORDERED: AMLODIPINE BESYL5 MG PO (10:18)
[2021-05-27] MEDS ORDERED: LISINOPRIL10 MG PO (10:18)
[2021-05-27] MEDS ORDERED: FARXIGA5 MG PO (10:18)
[2021-05-27] MEDS ORDERED: LASIX 20 MG TAB20 MG PO (10:18)
[2021-05-27] MEDS ORDERED: LIPITOR20 M1 PO (10:19)
[2021-05-27] MEDS ORDERED: ASPIRIN ADULT L81 M2 PO (10:25)
[2021-05-27] MEDS ORDERED: METOPROL TAR25 M1 PO (10:43)
--- NOTE | 2021-05-27 12:52 | NUR ---
PT ASLEEP WHEN ENTERED ROOM. NO DISTRESS NOTED. CALL LIGHT WITHIN REACH.
--- NOTE | 2021-05-27 15:30 | NUR ---
Discharge instructions given. Patient verbalizes understanding of same. Discharged in stable condition via Wheelchair to Home with staff. All belongings sent with pt. EDUCATION ON NEW MEDICATIONS GIVEN. EXPLAINED TO PT BP AND HEART RATE PARAMETERS WITH NEW MEDICATIONS.
== END 2021-05-27 15:30 | disposition home or self-care (01) ==
LOC: ED 14:38 → ED-I 17:30 → ED 17:45 → MS2 17:46
PROVIDERS: Family Medicine; Nurse Practitioner; ADMIT Internal Medicine; ATTEND Internal Medicine
DX: I13.0 Hypertensive heart and chronic kidney disease with heart failure and stage 1 through stage 4 chronic kidney disease, or unspecified chronic kidney disease (principal); I50.21 Acute systolic (congestive) heart failure; E11.22 Type 2 diabetes mellitus with diabetic chronic kidney disease; N18.30 Chronic kidney disease, stage 3 unspecified; I47.1 Supraventricular tachycardia; E78.5 Hyperlipidemia, unspecified; N40.0 Benign prostatic hyperplasia without lower urinary tract symptoms; Z79.84 Long term (current) use of oral hypoglycemic drugs; Z20.822 Contact with and (suspected) exposure to COVID-19
CPT/HCPCS: G0378; J1650; Q9967

== ENCOUNTER 2021-07-19 10:08 | Observation (INO) | payer MEDICAID ==
[~2021-07-19] VITALS: Ht 182.9 cm; Wt 102.1 kg
[~2021-07-19 10:08] MED LIST changes: +AMLODIPINE BESYL5 MG PO; +ASPIRIN ADULT L81 M2 PO; +FARXIGA5 MG PO; +LASIX 20 MG TAB20 MG PO; +LIPITOR20 M1 PO; +METOPROL TAR25 M1 PO
--- NOTE | 2021-07-19 11:15 | NUR ---
PATIENT COMPLAINING OF LEFT ARM PAIN AND LEFT SIDED ABDOMINAL PAIN, LOW BP 77/42. DR DUNCAN MADE AWARE.
--- NOTE | 2021-07-19 11:30 | NUR ---
EMS LITER OF FLUID INFUSED, SOCOND LITER STARTED NOW. BP 95/59. MONITORING AT BEDSIDE.
--- NOTE | 2021-07-19 11:48 | NUR ---
BP 110/85
[2021-07-19 12:16] LABS: IMMATURE GRANULOCYTES 0.2 % (0.0-5.0); MEAN CELL VOLUME 92.5 fL CALC (80.0-100.0); MEAN CORPUSCULAR HGB 29.9 pG CALC (26.0-32.0); MEAN CORPUSCULAR HGB CONC 32.3 g/dL CAL (32.0-36.0); NEUT# 12.33 thou/uL (1.82-7.42); RED BLOOD COUNT 4.42 mill/uL (4.70-6.10); RED CELL DISTRI WIDTH 12.5 % (11.5-15.5)
[2021-07-19 12:17] LABS: HEMATOCRIT 40.9 % (39.0-50.0); HEMOGLOBIN 13.2 g/dl (14.0-18.0)
[2021-07-19 12:29] LABS: ALBUMIN 3.7 g/dL (3.2-5.0); BILIRUBIN, TOTAL 0.6 mg/dL (0.0-1.4); CREATININE 2.4 mg/dL (0.7-1.3); POTASSIUM 4.7 mmol/l (3.5-5.1)
[2021-07-19] MEDS ORDERED: LISINOPRIL10 MG PO (13:42)
[2021-07-19] MEDS ORDERED: NORVASC PO (13:42)
[2021-07-19] MEDS ORDERED: ATORVASTATIN CA20 MG PO (13:43)
[2021-07-19] MEDS ORDERED: LOPRESSOR25 MG PO (13:43)
[2021-07-19] MEDS ORDERED: FARXIGA5 MG PO (13:43)
[2021-07-19] MEDS ORDERED: FUROSEMIDE20 MG PO (13:43)
[2021-07-19] MEDS ORDERED: EQ ASPIRIN81 MG PO (13:44)
[2021-07-19 13:54] LABS: URINE BILIRUBIN - DIPSTICK NEGATIVE (NEGATIVE); URINE BLOOD DIPSTICK NEGATIVE (NEGATIVE); URINE COLOR YELLOW; URINE GLUCOSE - DIPSTICK >=1000 mg/dL (NEGATIVE); URINE KETONE NEGATIVE (NEGATIVE); URINE LEUK ESTERASE NEGATIVE (NEGATIVE); URINE PROTEIN - DIPSTICK 30 mg/dL (NEG-TRACE); URINE SPECIFIC GRAVITY 1.025; URINE UROBILINOGEN - DIPSTICK 0.2 E.U./dL (0.2)
[2021-07-19 14:00] LABS: URINE NITRITE - DIPSTICK NEGATIVE (Negative)
[2021-07-19 14:10] LABS: URINE MUCUS FEW hpf (NONE-FEW)
--- NOTE | 2021-07-19 14:30 | NUR ---
PATIENT RESTING, EYES CLOSED, VSS. CONTINUING TO MONITOR. CALL MCDERMOTT IN REACH.
--- NOTE | 2021-07-19 15:48 | NUR ---
ATTEMPTED TO DOMINIK REPORT, ROBERT TO CALL ME BACK.
--- NOTE | 2021-07-19 17:00 | NUR ---
ATTEMPT TO CALL REPORT, WILMER TO CALL BACK.
--- NOTE | 2021-07-19 17:45 | NUR ---
REPORT TO SHREE
--- NOTE | 2021-07-19 18:05 | NUR ---
D/C instructions given with verbalization of understanding. Pt. discharged home in stable condition. AMBULATORY WITH CORRECTIONS
--- NOTE | 2021-07-19 18:10 | NUR ---
Admission Note Report Given to: Transported by: Wheelchair X Stretcher Transported with: X Nurse Transporter X Patent IV O2 X Hydrographical Technical Officer Location: ICU X MS2
[2021-07-19 19:00] VITALS: BP 146/50
[2021-07-20 04:00] VITALS: BP 159/86
--- NOTE | 2021-07-20 05:19 | NUR ---
PATIENT RESTED COMFORTABLY THROUGH THE NIGHT. NO COMPLAINTS OR CONCERNS
--- NOTE | 2021-07-20 05:20 | NUR ---
PATIENT FEVER STILL 99.4
[2021-07-20 06:28] LABS: HEMATOCRIT 42.5 % (39.0-50.0); HEMOGLOBIN 13.7 g/dl (14.0-18.0); MEAN CELL VOLUME 92.8 fL CALC (80.0-100.0); MEAN CORPUSCULAR HGB 29.9 pG CALC (26.0-32.0); MEAN CORPUSCULAR HGB CONC 32.2 g/dL CAL (32.0-36.0); RED BLOOD COUNT 4.58 mill/uL (4.70-6.10); RED CELL DISTRI WIDTH 12.6 % (11.5-15.5)
[2021-07-20 06:30] LABS: CREATININE 1.7 mg/dL (0.7-1.3); MAGNESIUM 1.9 mg/dL (1.6-2.3); POTASSIUM 4.6 mmol/l (3.5-5.1)
--- NOTE | 2021-07-20 06:45 | NUR ---
ER CALLED AND PATIENTS HEART RATE WAS IN THE 30'S. NURSE AT BEDSIDE AND PATIENT WAS ALSEEP AND EASILY ARROUSABLE
[2021-07-20 08:00] VITALS: BP 148/80
--- NOTE | 2021-07-20 08:00 | NUR ---
PATIENT ALERT, VERBAL, ABLE TO MAKE NEEDS KNOWN--ABLE TO TOLERATE MEDS WELL WHOLE. PIV SITE PATENT TO LAC AREA--FLUSHES WELL--SITE UNREMARKABLE. NS INFUSING @ 100ML/HR WITHOUT DIFFICULTY--TOLERATING FLUIDS WELL. CONT OF BOWEL AND BLADDER--ABLE TO AMBULATE ABOUT INDEPENDENTLY IN ROOM AD KARLOS. DENIES PAIN. TELEMETRY IN PLACE WITH SR/PACS @ 98. WILL CONT TO MONITOR FOR ANY FURTHER CHANGES.
[2021-07-20 11:25] VITALS: BP 159/98
--- NOTE | 2021-07-20 12:00 | NUR ---
PATIENT SEEN BY GETTER WELDER AT BEDSIDE--COMPLAINS OF HEADACHE AND ALL OVER DISCOMFORT WHICH IS HIS BASELINE HE STATES--MEW MED FIORICET GIVEN AT 11AM ORDERED--ALSO NOTED TO BE HAVING SOME HYPERTENSION--B/P 159/98--NEW ORDERS FOR LISINOPRIL/NORVASC ALSO IN PLACE AT THIS TIME. PATIENT TO BE DISCHARGED LATER TODAY LONG BP CAN BE STABILIZED. TELEMETRY IN PLACE WITH SINUS TACH @ 106 WELL. PIV SITE PATENT TO LEFT AC--NS INFUSING WELL @ 100ML/HR WELL--TOLERTING FLUIDS WELL. WILL CONT TO MONITOR FOR ANY FURTHER CHANGES.
[2021-07-20 12:29] VITALS: BP 159/98
--- NOTE | 2021-07-20 14:42 | NUR ---
Discharge instructions given. Patient verbalizes understanding of same. Discharged in fair condition via Wheelchair to *Other with *Other. All belongings sent with pt. Patient left facility via cab in route to his brother's house about two blocks from the facility.
== END 2021-07-20 14:45 | disposition home or self-care (01) ==
LOC: ED 10:08 → ED-I 12:35 → ED 14:22 → MS2 14:23
PROVIDERS: Family Medicine; Nurse Practitioner; ADMIT Internal Medicine; ATTEND Internal Medicine
DX: E86.0 Dehydration (principal); N28.9 Disorder of kidney and ureter, unspecified; I95.9 Hypotension, unspecified; I13.0 Hypertensive heart and chronic kidney disease with heart failure and stage 1 through stage 4 chronic kidney disease, or unspecified chronic kidney disease; I50.9 Heart failure, unspecified; E11.22 Type 2 diabetes mellitus with diabetic chronic kidney disease; N18.30 Chronic kidney disease, stage 3 unspecified; I25.10 Atherosclerotic heart disease of native coronary artery without angina pectoris; N40.0 Benign prostatic hyperplasia without lower urinary tract symptoms; E78.5 Hyperlipidemia, unspecified; Z79.84 Long term (current) use of oral hypoglycemic drugs; Z20.822 Contact with and (suspected) exposure to COVID-19
CPT/HCPCS: G0378; Q9967

== ENCOUNTER 2021-11-04 23:44 | Inpatient (IN) | payer MEDICAID ==
[~2021-11-04] VITALS: Ht 182.9 cm; Wt 136.0 kg
[~2021-11-04 23:44] MED LIST changes: +ATORVASTATIN CA20 MG PO; +EQ ASPIRIN81 MG PO; +FUROSEMIDE20 MG PO; +KEFLEX500 MG PO; +LOPRESSOR25 MG PO; +NORVASC PO
[2021-11-05 00:59] LABS: HEMATOCRIT 42.8 % (39.0-50.0); HEMOGLOBIN 13.9 g/dl (14.0-18.0); IMMATURE GRANULOCYTES 0.6 % (0.0-5.0); MEAN CELL VOLUME 90.7 fL CALC (80.0-100.0); MEAN CORPUSCULAR HGB 29.4 pG CALC (26.0-32.0); MEAN CORPUSCULAR HGB CONC 32.5 g/dL CAL (32.0-36.0); NEUT# 6.48 thou/uL (1.82-7.42); RED BLOOD COUNT 4.72 mill/uL (4.70-6.10); RED CELL DISTRI WIDTH 12.4 % (11.5-15.5)
[2021-11-05 01:04] LABS: ALBUMIN 3.3 g/dL (3.2-5.0); BILIRUBIN, TOTAL 0.5 mg/dL (0.0-1.4); CREATININE 1.5 mg/dL (0.7-1.3); POTASSIUM 4.3 mmol/l (3.5-5.1); TOTAL PROTEIN 6.8 g/dL (6.3-8.2)
[2021-11-05 02:51] LABS: URINE BILIRUBIN - DIPSTICK NEGATIVE (NEGATIVE); URINE BLOOD DIPSTICK TRACE-INTACT (NEGATIVE); URINE COLOR YELLOW; URINE GLUCOSE - DIPSTICK 250 mg/dL (NEGATIVE); URINE KETONE NEGATIVE (NEGATIVE); URINE LEUK ESTERASE NEGATIVE (NEGATIVE); URINE PROTEIN - DIPSTICK 30 mg/dL (NEG-TRACE); URINE SPECIFIC GRAVITY >=1.030; URINE UROBILINOGEN - DIPSTICK 0.2 E.U./dL (0.2)
[2021-11-05 02:59] LABS: URINE NITRITE - DIPSTICK NEGATIVE (Negative)
[2021-11-05 03:02] LABS: URINE EPITHELIAL CELLS FEW EPI/hpf (0-FEW)
[2021-11-05 03:04] LABS: URINE BACTERIA FEW hpf; URINE MUCUS MODERATE hpf (NONE-FEW)
[2021-11-05 07:36] VITALS: BP 155/84
[2021-11-05 11:36] VITALS: BP 166/122
[2021-11-05 12:00] VITALS: BP 156/98
[2021-11-05 15:15] VITALS: BP 137/98
[2021-11-05 19:00] VITALS: BP 139/94
[2021-11-06] VITALS (7 sets, daily range): BP systolic 116–166; BP diastolic 69–106
[2021-11-06 05:28] LABS: HEMATOCRIT 42.7 % (39.0-50.0); HEMOGLOBIN 13.8 g/dl (14.0-18.0); MEAN CELL VOLUME 91.6 fL CALC (80.0-100.0); MEAN CORPUSCULAR HGB 29.6 pG CALC (26.0-32.0); MEAN CORPUSCULAR HGB CONC 32.3 g/dL CAL (32.0-36.0); RED BLOOD COUNT 4.66 mill/uL (4.70-6.10); RED CELL DISTRI WIDTH 12.5 % (11.5-15.5)
[2021-11-06 05:49] LABS: ANION GAP 12 (6-22 (CALC)); BUN 18 mg/dL (9-20); BUN/CREATININE RATIO 16 (12-20 (CALC)); CARBON DIOXIDE 31 mmol/l (22-30); CHLORIDE 97 mmol/l (95-108); CREATININE 1.2 mg/dL (0.7-1.3); GFR > 60 ML/MIN (>=60 (CALC)); GFR FOR AFR.AMER. > 60 ML/MIN (>=60 (CALC)); MAGNESIUM 1.8 mg/dL (1.6-2.3); POTASSIUM 4.6 mmol/l (3.5-5.1); SODIUM 134 mmol/l (137-146)
[2021-11-07 00:30] VITALS: BP 147/79
[2021-11-07 04:00] VITALS: BP 133/79
[2021-11-07 06:42] LABS: HEMATOCRIT 41.2 % (39.0-50.0); HEMOGLOBIN 13.5 g/dl (14.0-18.0); MEAN CELL VOLUME 91.2 fL CALC (80.0-100.0); MEAN CORPUSCULAR HGB 29.9 pG CALC (26.0-32.0); MEAN CORPUSCULAR HGB CONC 32.8 g/dL CAL (32.0-36.0); RED BLOOD COUNT 4.52 mill/uL (4.70-6.10); RED CELL DISTRI WIDTH 12.6 % (11.5-15.5)
[2021-11-07 06:55] LABS: ANION GAP 12 (6-22 (CALC)); BUN 21 mg/dL (9-20); BUN/CREATININE RATIO 15 (12-20 (CALC)); CARBON DIOXIDE 30 mmol/l (22-30); CHLORIDE 97 mmol/l (95-108); CREATININE 1.4 mg/dL (0.7-1.3); GFR 52 ML/MIN (>=60 (CALC)); GFR FOR AFR.AMER. > 60 ML/MIN (>=60 (CALC)); POTASSIUM 4.8 mmol/l (3.5-5.1); SODIUM 135 mmol/l (137-146)
[2021-11-07 08:17] VITALS: BP 164/98
[2021-11-07 10:15] VITALS: BP 124/75
[2021-11-07 16:33] VITALS: BP 124/66
[2021-11-07 19:00] VITALS: BP 133/88
[2021-11-08] VITALS: BP 129/66
[2021-11-08 04:00] VITALS: BP 126/75
[2021-11-08 06:04] LABS: HEMATOCRIT 44.8 % (39.0-50.0); HEMOGLOBIN 14.5 g/dl (14.0-18.0); MEAN CELL VOLUME 90.7 fL CALC (80.0-100.0); MEAN CORPUSCULAR HGB 29.4 pG CALC (26.0-32.0); MEAN CORPUSCULAR HGB CONC 32.4 g/dL CAL (32.0-36.0); RED BLOOD COUNT 4.94 mill/uL (4.70-6.10); RED CELL DISTRI WIDTH 12.5 % (11.5-15.5)
[2021-11-08 06:36] LABS: ANION GAP 11 (6-22 (CALC)); BUN 21 mg/dL (9-20); BUN/CREATININE RATIO 17 (12-20 (CALC)); CARBON DIOXIDE 32 mmol/l (22-30); CHLORIDE 98 mmol/l (95-108); CREATININE 1.2 mg/dL (0.7-1.3); GFR > 60 ML/MIN (>=60 (CALC)); GFR FOR AFR.AMER. > 60 ML/MIN (>=60 (CALC)); SODIUM 136 mmol/l (137-146)
[2021-11-08 08:15] VITALS: BP 170/98
[2021-11-08 11:35] VITALS: BP 136/80
[2021-11-08 16:34] VITALS: BP 136/95
[2021-11-09 04:29] VITALS: BP 142/82
[2021-11-09 08:31] VITALS: BP 132/76
[2021-11-09 14:35] VITALS: BP 127/68
[2021-11-09] MEDS ORDERED: ZPAK PO (14:53)
[2021-11-09] MEDS ORDERED: AMLODIPINE BESYL5 MG PO (14:53)
[2021-11-09] MEDS ORDERED: CEFDINIR300 MG PO (14:53)
[2021-11-09] MEDS ORDERED: PANTOPRAZOLE SO40 M1 PO (14:54)
[2021-11-09] MEDS ORDERED: FUROSEMIDE20 MG PO (14:54)
[2021-11-09] MEDS ORDERED: LISINOPRIL20 M1 PO (14:54)
[2021-11-09] MEDS ORDERED: FARXIGA5 MG PO (14:59)
[2021-11-09 19:00] VITALS: BP 113/76
[2021-11-10 04:42] VITALS: BP 132/87
[2021-11-10 05:37] LABS: HEMATOCRIT 45.7 % (39.0-50.0); HEMOGLOBIN 14.5 g/dl (14.0-18.0); MEAN CELL VOLUME 93.1 fL CALC (80.0-100.0); MEAN CORPUSCULAR HGB 29.5 pG CALC (26.0-32.0); MEAN CORPUSCULAR HGB CONC 31.7 g/dL CAL (32.0-36.0); RED BLOOD COUNT 4.91 mill/uL (4.70-6.10); RED CELL DISTRI WIDTH 12.3 % (11.5-15.5)
[2021-11-10 06:01] LABS: ANION GAP 12 (6-22 (CALC)); BUN 24 mg/dL (9-20); BUN/CREATININE RATIO 19 (12-20 (CALC)); CARBON DIOXIDE 31 mmol/l (22-30); CHLORIDE 96 mmol/l (95-108); CREATININE 1.3 mg/dL (0.7-1.3); GFR 57 ML/MIN (>=60 (CALC)); GFR FOR AFR.AMER. > 60 ML/MIN (>=60 (CALC)); SODIUM 134 mmol/l (137-146)
[2021-11-10 09:40] VITALS: BP 131/97
[2021-11-10] MEDS ORDERED: LEVAQUIN750 M1 PO (10:33)
== END 2021-11-10 15:12 | disposition home or self-care (01) | DRG 194 ==
LOC: ED 23:44 → ED-I 11-05 04:33 → ED 11-05 04:48 → MS2 11-05 04:49
PROVIDERS: Emergency Medicine; Nurse Practitioner; ADMIT Hospitalist; ATTEND Hospitalist
DX: J18.9 Pneumonia, unspecified organism (principal); J44.0 Chronic obstructive pulmonary disease with (acute) lower respiratory infection; I13.0 Hypertensive heart and chronic kidney disease with heart failure and stage 1 through stage 4 chronic kidney disease, or unspecified chronic kidney disease; J44.1 Chronic obstructive pulmonary disease with (acute) exacerbation; E11.65 Type 2 diabetes mellitus with hyperglycemia; I50.9 Heart failure, unspecified; E11.22 Type 2 diabetes mellitus with diabetic chronic kidney disease; N18.30 Chronic kidney disease, stage 3 unspecified; N40.0 Benign prostatic hyperplasia without lower urinary tract symptoms; I25.10 Atherosclerotic heart disease of native coronary artery without angina pectoris; E86.0 Dehydration; G47.33 Obstructive sleep apnea (adult) (pediatric); G40.909 Epilepsy, unspecified, not intractable, without status epilepticus; Z20.822 Contact with and (suspected) exposure to COVID-19
CPT/HCPCS: A9540; Q9967

== ENCOUNTER 2021-11-18 15:40 | Inpatient (IN) | payer MEDICAID ==
[~2021-11-18] VITALS: Ht 182.9 cm; Wt 132.0 kg
[~2021-11-18 15:40] MED LIST changes: +CEFDINIR300 MG PO; +LEVAQUIN750 M1 PO; +LISINOPRIL20 M1 PO; +PANTOPRAZOLE SO40 M1 PO; +ZPAK PO
--- NOTE | 2021-11-18 15:51 | NUR ---
PT TO ROOM VIA EMS
[2021-11-18 16:17] LABS: HEMATOCRIT 41.9 % (39.0-50.0); HEMOGLOBIN 13.5 g/dl (14.0-18.0); IMMATURE GRANULOCYTES 0.4 % (0.0-5.0); MEAN CELL VOLUME 90.9 fL CALC (80.0-100.0); MEAN CORPUSCULAR HGB 29.3 pG CALC (26.0-32.0); MEAN CORPUSCULAR HGB CONC 32.2 g/dL CAL (32.0-36.0); NEUT# 6.82 thou/uL (1.82-7.42); RED BLOOD COUNT 4.61 mill/uL (4.70-6.10); RED CELL DISTRI WIDTH 12.5 % (11.5-15.5)
[2021-11-18 16:31] LABS: BILIRUBIN, TOTAL 0.6 mg/dL (0.0-1.4); TOTAL PROTEIN 7.9 g/dL (6.3-8.2)
[2021-11-18 16:32] LABS: CREATININE 3.9 mg/dL (0.7-1.3)
[2021-11-18 16:33] LABS: POTASSIUM 5.2 mmol/l (3.5-5.1)
--- NOTE | 2021-11-18 17:25 | NUR ---
DR DUNCAN BEDSIDE FOR POSSIBLE PLACEMENT OF CENTRAL LINE
--- NOTE | 2021-11-18 18:52 | NUR ---
W/P/D SKIN OCC NPO LAURA COUGH DENIES WEAKNESS OR PAIN OF ANY ORIGIN.
--- NOTE | 2021-11-18 19:05 | NUR ---
PATIENT OFFERED ADDITIONAL WARM BLANKET.
--- NOTE | 2021-11-18 19:06 | NUR ---
TRANSITION OF CARE REPORT TO PEGGY RN
--- NOTE | 2021-11-18 20:35 | NUR ---
W/P/D SKIN SR NO ECTOPY NO COUGH NO CONGESTION NO SOB
--- NOTE | 2021-11-18 21:00 | NUR ---
FAXED SBAR RECEIVED FROM ED.
--- NOTE | 2021-11-18 21:06 | NUR ---
CALL RECEIVED FROM Omar PIEDRA IN ED FOR BED ASSIGNMENT. ICU#1 ASSIGNED FOR PT AT THIS TIME. ICU#1 PREPARED TO RECEIVE PT.
--- NOTE | 2021-11-18 21:37 | NUR ---
PT TURNS FROM SIDE TO SIDE UNASSISTED VOIDED 400 CC CLEAR PALE YELLOW URINE NO COUGH NO SOB
[2021-11-18 21:46] LABS: URINE BILIRUBIN - DIPSTICK NEGATIVE (NEGATIVE); URINE BLOOD DIPSTICK SMALL (NEGATIVE); URINE COLOR YELLOW; URINE GLUCOSE - DIPSTICK >=1000 mg/dL (NEGATIVE); URINE KETONE TRACE mg/dL (NEGATIVE); URINE LEUK ESTERASE NEGATIVE (NEGATIVE); URINE PROTEIN - DIPSTICK NEGATIVE (NEG-TRACE); URINE UROBILINOGEN - DIPSTICK 0.2 E.U./dL (0.2)
[2021-11-18 21:47] LABS: URINE NITRITE - DIPSTICK NEGATIVE (Negative)
[2021-11-18 21:55] LABS: URINE RBC 0-2 RBC/hpf (0-5)
--- NOTE | 2021-11-18 21:57 | NUR ---
TELEPHONE REPORT RECEIVED FROM JERAMY COTTON IN ED.
--- NOTE | 2021-11-18 21:58 | NUR ---
PHONE REPORT TO LOY COTTON
--- NOTE | 2021-11-18 22:00 | NUR ---
PT TRANSPORTED TO ICU 1 VIA STRETCHER MONITOR O2 IN STABLE CONDITION
--- NOTE | 2021-11-18 22:08 | NUR ---
PT ARRIVES TO UNIT VIA STRETCHER, ACCOMPANIED BY Allen ARNOLD RN. ADMITTED TO ICU #1.
[2021-11-18 22:10] VITALS: BP 121/80
--- NOTE | 2021-11-18 22:20 | NUR ---
FOOD AND DRINK PROVIDED PER PT'S REQUEST. PT STATES HE PASSED OUT DURUNG DINNER AND HASNT EATEN TODAY.
--- NOTE | 2021-11-18 22:42 | NUR ---
PT HAS LARGE SOFT BM AND URINE ON FLOOR WHILE ATTEMPTING TO GET UP WITHOUT CALLING FOR ASSIST. STATES "IT COMES TO QUICK, I CANT HOLD IT". REPORTS CHRONIC CONSTIPATION BUT LOOSE STOOLS SINCE STARTING ABX. BSC PROVIDED REQUESTED BY PT. FLOOR CLEANED OF VISIBLE MATTER AND SANITIZED BY EVS. PT AGREES TO CALL PRN, CALL MCDERMOTT WITHIN REACH.
[2021-11-19] VITALS (18 sets, daily range): BP systolic 86–134; BP diastolic 56–87
--- NOTE | 2021-11-19 04:43 | NUR ---
AM LABS COLLECTED FROM [facility] W/O DIFFICULTY. 1600ML CLEAR YELLOW URINE EMPTIED FROM URINALS. LARGE SOFT BM EMPTIED FROM COMMODE. PT DENIES FURTHER NEEDS AT THIS TIME. CALL MCDERMOTT WITHIN REACH, AGREES TO CALL PRN.
[2021-11-19 04:50] LABS: HEMATOCRIT 41.8 % (39.0-50.0); HEMOGLOBIN 13.6 g/dl (14.0-18.0); MEAN CELL VOLUME 90.5 fL CALC (80.0-100.0); MEAN CORPUSCULAR HGB 29.4 pG CALC (26.0-32.0); MEAN CORPUSCULAR HGB CONC 32.5 g/dL CAL (32.0-36.0); RED BLOOD COUNT 4.62 mill/uL (4.70-6.10); RED CELL DISTRI WIDTH 12.5 % (11.5-15.5)
[2021-11-19 05:11] LABS: CREATININE 3.2 mg/dL (0.7-1.3); MAGNESIUM 2.1 mg/dL (1.6-2.3); POTASSIUM 5.1 mmol/l (3.5-5.1)
--- NOTE | 2021-11-19 07:30 | NUR ---
report received from LULA Diaz;
--- NOTE | 2021-11-19 07:45 | NUR ---
pt resting in bed with eyes closed; no apparent distress noted; pt easily aroused; offers no complaints; assessment completed at this time; pt alert and oriented; denies pain; no n/v noted per entry writer; resp even and unlabored; lungs coarse throughout; skin color wnl; o2 per nc at 3L; no dry cough; hr reg; strong pulses; no edema noted; sr on monitor; abd soft with bs present; no bm noted per entry writer; pt voiding clear yellow urine; urinal at bedside; #20 to lw ems site saline locked; TLC patent to right fem with ivf/ levophed gtt at 2mcg/min; no rendess or edema noted at site; plan of care/ am meds explained; call light within reach; will continue to monitor closely
--- NOTE | 2021-11-19 08:05 | NUR ---
awake in bed eating breakfast; no apparent distress noted; pt offers no complaints; iv intact and patent; sr on monitor; o2 per nc; call light within reach; will continue to monitor
--- NOTE | 2021-11-19 09:04 | NUR ---
Dr Sanchez present at bedside to assess pt and discuss plan of care
--- NOTE | 2021-11-19 10:02 | NUR ---
awake conversing on cell phone; no apparent distress noted; o2 per nc; sr on monitor; iv intact and patent; bp remains stable off levo; call light within reach; will continue to monitor
--- NOTE | 2021-11-19 10:47 | NUR ---
RT AT BEDSIDE TO ADMINISTER BREATHING TREATMENT
--- NOTE | 2021-11-19 12:00 | NUR ---
awake in bed conversing on portable phone; no apparent distress noted; sr/st on monitor; iv intact and patent; call light within reach; will continue to monitor
--- NOTE | 2021-11-19 12:39 | NUR ---
received call from sister Raya; permission received from pt to provide upate; update has been provided; will continue to monitor
--- NOTE | 2021-11-19 14:10 | NUR ---
awake in bed; no apparent distress noted; pt offers no complaints; iv intact and patent; no redness or edema noted at site; sr-st on monitor; po fluids provided; urinal at bedside; call light within reach; will continue to monitor
--- NOTE | 2021-11-19 14:46 | NUR ---
family excused from the room; staff here to receive body; pt released for Ale staff Ray
--- NOTE | 2021-11-19 16:02 | NUR ---
resting in bed with eyes closed; no apparent distress noted; sr on monitor; iv intact; will continue to monitor
--- NOTE | 2021-11-19 18:01 | NUR ---
pt awake in bed eating dinner; no apparent distress noted; pt offers no complaints; st on monitor; iv intact and patent; o2 per nc; call light within reach
--- NOTE | 2021-11-19 19:00 | NUR ---
BEDSIDE REPORT RECEIVED FROM Ivette SMITH RN. CARE OF PT ASSUMED AT THIS TIME.
--- NOTE | 2021-11-19 21:52 | NUR ---
REPORT RECEIVED FROM Sofya IVORY RN
--- NOTE | 2021-11-19 23:00 | NUR ---
REPORT GIVEN TO Latosha VARELA RN. PT TRANSFERRED TO ROOM 274 VIA WC ACCOMPANIED BY RN.
--- NOTE | 2021-11-19 23:00 | NUR ---
PATIENT ARRIVED ON FLOOR VIA WHEEL CHAIR ACCOMPANIED BY LOOM FIXER APPRENTICE AND Sofya IVORY RN.
[2021-11-20 04:52] VITALS: BP 108/62
[2021-11-20 06:27] LABS: MAGNESIUM 2.1 mg/dL (1.6-2.3); POTASSIUM 4.7 mmol/l (3.5-5.1)
[2021-11-20 06:39] LABS: CREATININE 1.9 mg/dL (0.7-1.3)
[2021-11-20 06:47] LABS: HEMATOCRIT 39.2 % (39.0-50.0); HEMOGLOBIN 12.3 g/dl (14.0-18.0); MEAN CELL VOLUME 93.8 fL CALC (80.0-100.0); MEAN CORPUSCULAR HGB 29.4 pG CALC (26.0-32.0); MEAN CORPUSCULAR HGB CONC 31.4 g/dL CAL (32.0-36.0); RED BLOOD COUNT 4.18 mill/uL (4.70-6.10); RED CELL DISTRI WIDTH 12.9 % (11.5-15.5)
[2021-11-20 07:40] VITALS: BP 140/93
--- NOTE | 2021-11-20 07:40 | NUR ---
PATIENT IS RESTING IN BED. ASSESSMENT DONE. PATIENT IS ALERT AND ORIENT X3. PATIENT IS TALKATIVE. PATIENT DENIES PAIN. RESPS LABORED AND LUNGS SOUND WITH WHEEZES. [address] VIA NC AND PATIENT SATS 96%. PATIENT DENIES NEEDS. SAFETY PRECAUTIONS REINFORCED AND CALL LIGHT IN REACH.
[2021-11-20] MEDS ORDERED: DOXYCYCLINE100 MG PO (11:26)
--- NOTE | 2021-11-20 11:55 | NUR ---
PATIENT IS EATING HIS LUNCH WITH NO DISTRESS NOTED. PATIENT DENIES PAIN. CALL LIGHT IN REACH.
--- NOTE | 2021-11-20 14:31 | NUR ---
Discharge instructions given. Patient verbalizes understanding of same. Discharged in stable condition via Wheelchair to Home with staff. All belongings sent with pt.
== END 2021-11-20 14:31 | disposition home or self-care (01) | DRG 314 ==
LOC: ED 15:40 → ED-I 20:34 → ED 21:20 → MS2 21:21 → ICU 21:21 → MS2 11-19 23:00
PROVIDERS: Family Medicine; ADMIT Hospitalist; ATTEND Hospitalist
PROC: 06HY33Z Insertion of Infusion Device into Lower Vein, Percutaneous Approach (ICD-10-PCS; principal; 2021-11-18)
DX: I95.89 Other hypotension (principal); J96.21 Acute and chronic respiratory failure with hypoxia; J44.1 Chronic obstructive pulmonary disease with (acute) exacerbation; I13.0 Hypertensive heart and chronic kidney disease with heart failure and stage 1 through stage 4 chronic kidney disease, or unspecified chronic kidney disease; I50.9 Heart failure, unspecified; E11.22 Type 2 diabetes mellitus with diabetic chronic kidney disease; N18.30 Chronic kidney disease, stage 3 unspecified; E86.0 Dehydration; I25.10 Atherosclerotic heart disease of native coronary artery without angina pectoris; G40.909 Epilepsy, unspecified, not intractable, without status epilepticus; N40.0 Benign prostatic hyperplasia without lower urinary tract symptoms; Z87.01 Personal history of pneumonia (recurrent); Z20.822 Contact with and (suspected) exposure to COVID-19
CPT/HCPCS: J0692; Q9967

== ENCOUNTER 2022-02-11 17:30 | Emergency (ER) | payer MEDICAID ==
[~2022-02-11] VITALS: Ht 182.9 cm; Wt 159.0 kg
[~2022-02-11 17:30] MED LIST changes: +DOXYCYCLINE100 MG PO
[2022-02-11 19:09] LABS: HEMATOCRIT 42.5 % (39.0-50.0); HEMOGLOBIN 13.4 g/dl (14.0-18.0); IMMATURE GRANULOCYTES 0.1 % (0.0-5.0); MEAN CORPUSCULAR HGB 29.6 pG CALC (26.0-32.0); MEAN CORPUSCULAR HGB CONC 31.5 g/dL CAL (32.0-36.0); NEUT# 6.58 thou/uL (1.82-7.42); RED BLOOD COUNT 4.52 mill/uL (4.70-6.10); RED CELL DISTRI WIDTH 13.1 % (11.5-15.5)
[2022-02-11 19:21] LABS: ALBUMIN 3.7 g/dL (3.2-5.0); ALKALINE PHOSPHATASE 107 u/l (38-126); AMYLASE 47 u/l (30-110); ANION GAP 13 (6-22 (CALC)); BILIRUBIN, TOTAL 0.5 mg/dL (0.0-1.4); BUN 24 mg/dL (9-20); BUN/CREATININE RATIO 16 (12-20 (CALC)); CARBON DIOXIDE 26 mmol/l (22-30); CHLORIDE 105 mmol/l (95-108); CREATININE 1.5 mg/dL (0.7-1.3); GFR 48 ML/MIN (>=60 (CALC)); GFR FOR AFR.AMER. 58 ML/MIN (>=60 (CALC)); LIPASE 60 u/l (23-300); POTASSIUM 4.2 mmol/l (3.5-5.1); SGOT/AST 19 u/l (17-59); TOTAL PROTEIN 7.1 g/dL (6.3-8.2)
[2022-02-11 19:22] LABS: SODIUM 140 mmol/l (137-146)
[2022-02-11 19:33] LABS: MYOGLOBIN 30 ng/mL (0 - 121)
[2022-02-11 21:40] LABS: URINE BILIRUBIN - DIPSTICK NEGATIVE (NEGATIVE); URINE BLOOD DIPSTICK TRACE-INTACT (NEGATIVE); URINE COLOR YELLOW; URINE GLUCOSE - DIPSTICK NEGATIVE (NEGATIVE); URINE KETONE 15 mg/dL (NEGATIVE); URINE LEUK ESTERASE NEGATIVE (NEGATIVE); URINE NITRITE - DIPSTICK NEGATIVE (Negative); URINE PROTEIN - DIPSTICK TRACE mg/dL (NEG-TRACE); URINE SPECIFIC GRAVITY 1.025; URINE UROBILINOGEN - DIPSTICK 0.2 E.U./dL (0.2)
[2022-02-11] MEDS ORDERED: ULTRAM50 M1 PO (21:56)
[2022-02-11] MEDS ORDERED: PREVACID30 M3 PO (21:56)
[2022-02-11 22:25] VITALS: BP 132/90
== END 2022-02-11 22:30 | disposition home or self-care (01) ==
LOC: ED 17:30
PROVIDERS: Emergency Medicine
DX: K29.70 Gastritis, unspecified, without bleeding (principal); E11.65 Type 2 diabetes mellitus with hyperglycemia; K57.30 Diverticulosis of large intestine without perforation or abscess without bleeding; F19.10 Other psychoactive substance abuse, uncomplicated; I10 Essential (primary) hypertension; J44.9 Chronic obstructive pulmonary disease, unspecified; F17.200 Nicotine dependence, unspecified, uncomplicated; G40.909 Epilepsy, unspecified, not intractable, without status epilepticus; Z87.01 Personal history of pneumonia (recurrent); Z20.822 Contact with and (suspected) exposure to COVID-19

== ENCOUNTER 2022-04-26 00:23 | Emergency (ER) | payer MEDICAID ==
[~2022-04-26] VITALS: Ht 182.9 cm; Wt 125.0 kg
[~2022-04-26 00:23] MED LIST changes: +PREVACID30 M3 PO
[2022-04-26 00:29] VITALS: BP 149/121
[2022-04-26 00:57] LABS: HEMATOCRIT 44.6 % (39.0-50.0); HEMOGLOBIN 14.4 g/dl (14.0-18.0); IMMATURE GRANULOCYTES 0.4 % (0.0-5.0); MEAN CELL VOLUME 90.7 fL CALC (80.0-100.0); MEAN CORPUSCULAR HGB 29.3 pG CALC (26.0-32.0); MEAN CORPUSCULAR HGB CONC 32.3 g/dL CAL (32.0-36.0); NEUT# 3.35 thou/uL (1.82-7.42); RED BLOOD COUNT 4.92 mill/uL (4.70-6.10); RED CELL DISTRI WIDTH 11.9 % (11.5-15.5)
[2022-04-26 00:59] VITALS: BP 147/101
[2022-04-26 01:21] LABS: ALBUMIN 3.6 g/dL (3.2-5.0); ALKALINE PHOSPHATASE 100 u/l (38-126); ANION GAP 12 (6-22 (CALC)); BILIRUBIN, TOTAL 0.4 mg/dL (0.0-1.4); BUN 30 mg/dL (9-20); BUN/CREATININE RATIO 24 (12-20 (CALC)); CARBON DIOXIDE 25 mmol/l (22-30); CHLORIDE 101 mmol/l (95-108); CREATININE 1.2 mg/dL (0.7-1.3); GFR FOR AFR.AMER. > 60 ML/MIN (>=60 (CALC)); GFR OTHER RACES > 60 ML/MIN (>=60 (CALC)); POTASSIUM 5.2 mmol/l (3.5-5.1); SGOT/AST 21 u/l (17-59); SODIUM 133 mmol/l (137-146); TOTAL PROTEIN 6.8 g/dL (6.3-8.2)
[2022-04-26 01:30] VITALS: BP 170/96
[2022-04-26] MEDS ORDERED: VENTOLIN HFA IN (01:43)
[2022-04-26 01:46] VITALS: BP 175/109
[2022-04-26 01:51] VITALS: BP 175/109
== END 2022-04-26 02:02 | disposition home or self-care (01) ==
LOC: ED 00:23
PROVIDERS: Family Medicine
DX: J45.901 Unspecified asthma with (acute) exacerbation (principal); K59.00 Constipation, unspecified; I10 Essential (primary) hypertension; E11.9 Type 2 diabetes mellitus without complications; J44.9 Chronic obstructive pulmonary disease, unspecified; G40.909 Epilepsy, unspecified, not intractable, without status epilepticus

== ENCOUNTER 2022-07-02 11:39 | Observation (INO) | payer MEDICAID ==
[2022-07-02] VITALS (40 sets, daily range): BP systolic 123–198; BP diastolic 83–144
[~2022-07-02] VITALS: Ht 182.9 cm; Wt 132.0 kg
[~2022-07-02 11:39] MED LIST changes: +VENTOLIN HFA IN
--- NOTE | 2022-07-02 11:46 | NUR ---
PT TO ROOM VIA EMS FROM HOME
[2022-07-02 12:28] LABS: HEMATOCRIT 46.1 % (39.0-50.0); HEMOGLOBIN 15.3 g/dl (14.0-18.0); IMMATURE GRANULOCYTES 0.2 % (0.0-5.0); MEAN CELL VOLUME 88.7 fL CALC (80.0-100.0); MEAN CORPUSCULAR HGB 29.4 pG CALC (26.0-32.0); MEAN CORPUSCULAR HGB CONC 33.2 g/dL CAL (32.0-36.0); NEUT# 9.14 thou/uL (1.82-7.42); RED BLOOD COUNT 5.2 mill/uL (4.70-6.10); RED CELL DISTRI WIDTH 12.8 % (11.5-15.5)
[2022-07-02 12:36] LABS: ALBUMIN 3.6 g/dL (3.2-5.0); ALKALINE PHOSPHATASE 108 u/l (38-126); ANION GAP 12 (6-22 (CALC)); BUN 29 mg/dL (9-20); BUN/CREATININE RATIO 24 (12-20 (CALC)); CARBON DIOXIDE 24 mmol/l (22-30); CHLORIDE 99 mmol/l (95-108); CREATININE 1.2 mg/dL (0.7-1.3); GFR FOR AFR.AMER. > 60 ML/MIN (>=60 (CALC)); GFR OTHER RACES > 60 ML/MIN (>=60 (CALC)); POTASSIUM 5.1 mmol/l (3.5-5.1); SGOT/AST 29 u/l (17-59); SODIUM 129 mmol/l (137-146); TOTAL PROTEIN 7.3 g/dL (6.3-8.2)
[2022-07-02 12:42] LABS: BILIRUBIN, TOTAL 0.6 mg/dL (0.0-1.4)
--- NOTE | 2022-07-02 12:50 | NUR ---
REASSESSED. NAD. VITALS CHECKED. CALL LIGHT IN REACH. PULP REFINER OPERATOR AWARE OF FLUCUATING BP
--- NOTE | 2022-07-02 13:58 | NUR ---
REASSESSMENT DONE. NAD. CALL LIGHT IN REACH. EMAIL CAMPAIGN MANAGER AWARE OF FLUCUATING BP
[2022-07-02 14:19] LABS: AMYLASE 68 u/l (30-110); CPK 36 u/l (52-200); LIPASE 631 u/l (23-300); PROTHROMBIN TIME 10.1 SECONDS (9.0-12.5)
[2022-07-02 14:29] LABS: MYOGLOBIN 29 ng/mL (0 - 121)
--- NOTE | 2022-07-02 14:45 | NUR ---
REASSESSED. NAD. CALL LIGHT IN REACH.
[2022-07-02 15:22] LABS: URINE BILIRUBIN - DIPSTICK NEGATIVE (NEGATIVE); URINE BLOOD DIPSTICK TRACE-INTACT (NEGATIVE); URINE COLOR YELLOW; URINE GLUCOSE - DIPSTICK >=1000 mg/dL (NEGATIVE); URINE KETONE NEGATIVE (NEGATIVE); URINE LEUK ESTERASE NEGATIVE (NEGATIVE); URINE PROTEIN - DIPSTICK TRACE mg/dL (NEG-TRACE); URINE SPECIFIC GRAVITY 1.025; URINE UROBILINOGEN - DIPSTICK 0.2 E.U./dL (0.2)
[2022-07-02 15:29] LABS: URINE NITRITE - DIPSTICK NEGATIVE (Negative)
--- NOTE | 2022-07-02 15:45 | NUR ---
REASSESSED. NAD. CALL LIGHT IN REACH.
--- NOTE | 2022-07-02 16:55 | NUR ---
REASSESSED. NAD. VITALS CHECKED. TOP COLLAR MAKER AWARE OF FLUCUATING BP. PATIENT MOVES AROUND ALOT. INTRUCTED TO BE STILL WHEN BP CUFF IS GOING OFF.
--- NOTE | 2022-07-02 17:30 | NUR ---
REASSESSED. CALL LIGHT IN REACH. NAD.
--- NOTE | 2022-07-02 19:16 | NUR ---
BEDSIDE REPORT WITH LULA OLSEN. PT BP 186/144 AT 1231. SBP HAS DECREASED BY 18% AND DBP HAS DECREASED BY 25%. CURRENT BP 156/108. PT DENIES CHEST PAIN OR DIZZINESS AT THIS TIME.
--- NOTE | 2022-07-02 19:39 | NUR ---
REPORT GIVEN TO LULA HAYS
--- NOTE | 2022-07-02 20:38 | NUR ---
SPOKE WITH DR. VILLASENOR REGARDING CURRENT BP 156/101. PER PHYSICIAN CONTINUE WITH PLAN FOR ADMISSION TO M/S-TELE. HE PLANS TO ADD PRN BP ORDER. CHARGE NURSE, MAXIME, TIFFANY.
--- NOTE | 2022-07-02 20:40 | NUR ---
UNABLE TO RECONCILE MEDS. PT REPORTS THAT HE HAS BEEN OUT OF MEDICATIONS FOR 3 MONTHS.
--- NOTE | 2022-07-02 20:55 | NUR ---
Admission Note Report Given to: LULA BUNCH Transported by: Wheelchair X Stretcher Transported with: X Nurse Transporter X Patent IV O2 X Insole And Outsole Preparer Location: ICU X MS2 [facility] IN STABLE CONDITION. BEDSIDE REPORT GIVEN.
--- NOTE | 2022-07-02 22:00 | NUR ---
PATIENT ADMITTED FROM ER VIA STRETCHER WITH ER STAFF IN ATTENDANCE. PATIENT ABLE TO TRANSFER FROM STRETCHER TO BED. PATIENT IS AWAKE ALERT AND ORIENTEDX3. PATIENT ADMITTED WITH CHEST/ABD PAIN. PATIENT WITH HX OF HTN, DIAB AND SEIZURFES. [id number] NOT TAKEN ANY MEDS FOR AT LEAST 3 MONTHS. STATES THAT HE DOESN'T HAVE A PCP BECAUSE "ALL THEY WORRY ABOUT IS MY BP AND DIAB NOBODY WILL FIX MY HERNIA'S." ATTEMPT TO EDUCATE PATIENT WAS NOT VERY SUCCESSFUL. STATES HE ISN'T WORRIED ABOUT ALL THAT OTHER STUFF JUST HIS HERNIA'S. TELE MONITOR IN PLACE-SR-80'S. LUNGS ARE CLEAR. ABD IS DISTENDED WITH ACTIVE BS. NO BM FOR 6 DAYS PER PATIENT. MEDICATED WITH MOM 30CC FOR CONSTIPATION. VOIDED 300CC OF CLEAR YELLOW URINE IN URINAL. GLUCOSE MONITOR WAS 451-COVERED WITH HUMALOG 6UNITS AND GIVEN LEVEMIR 20UNITS SQ GIVEN ORDERED AND DR. VILLASENOR NOTIFIED OF HIGH GLUCOSE. MEDICATED WITH TYLENOL 650 FOR CHEST/ABD PAIN. SALINE LOCK TO LEFT AC-FLUSHED PER PROTOCOL. ORIENTED TO ROOM AND SURROUNDINGS. INSTRUCTED ON USE OF NURSE CALL LIGHT AND TV REMOTE. SAFETY PRECAUTIONS REINFORCED. CALL LIGHT IN REACH. WILL CONT TO MONITOR.
[2022-07-03 00:37] VITALS: BP 136/80
--- NOTE | 2022-07-03 01:00 | NUR ---
PATIENT POSITIONED ON LEFT SIDE WITH EYES CLOSED AND RESPS EVEN AND UNLABORED. TELE MONITOR IN PLACE. IV SITE TO LEFT UPPER ARM INTACT. CALL LIGHT IN REACH, WILL CONT TO MONITOR.
--- NOTE | 2022-07-03 04:23 | NUR ---
PATIENT APPEARS SLEEPING AT THIS TIME WITH EYES CLOSED-POSITIONED ON SIDE. RESPS ARE EVEN AND UNLABORED. TELE MONITOR IN PLACE. SALINE LOCK INTACT TO LEFT UPPER ARM. SIDERAILS PADDED FOR SEIZURE PRECAUTIONS. CALL LIGHT IN REACH. WILL CONT TO MONTIOR.
[2022-07-03 05:25] VITALS: BP 146/83
[2022-07-03 06:57] VITALS: BP 138/100
--- NOTE | 2022-07-03 08:00 | NUR ---
PT RESTING IN SEMI FOWLERS POSITION. PT A/OX3. ASSESSMENT COMPLETED. RESPIRATIONS EVEN AND UNLABORED ON ROOM AIR. LUNG SOUNDS DIMINISHED.HEART RHYTHM NORMAL WITH TELE IN PLACE. BOWEL SOUNDS ACTIVE. #20G EDWARD FLUSHED, SITE PATENT. SKIN INTACT. PT DENIES OF ANY PAINS. ALL SAFTEY PRECAUTIONS ARE IN PLACE WITH CALL LIGHT IN REACH
[2022-07-03 08:09] LABS: ANION GAP 13 (6-22 (CALC)); BUN 22 mg/dL (9-20); BUN/CREATININE RATIO 20 (12-20 (CALC)); CALCULATED LDLCHOLESTEROL 193 mg/dL (62-129 (CALC)); CARBON DIOXIDE 28 mmol/l (22-30); CHLORIDE 99 mmol/l (95-108); CHOLESTEROL HDL RATIO 6.7 (<4.4 (CALC)); CREATININE 1.1 mg/dL (0.7-1.3); GFR FOR AFR.AMER. > 60 ML/MIN (>=60 (CALC)); GFR OTHER RACES > 60 ML/MIN (>=60 (CALC)); HDL CHOLESTEROL 42 mg/dL (>=40); MAGNESIUM 2.2 mg/dL (1.6-2.3); POTASSIUM 4.8 mmol/l (3.5-5.1); SODIUM 134 mmol/l (137-146); TOTAL CHOLESTEROL 279 mg/dl (0-199); TOTAL TRIGLYCERIDES 221 mg/dl (30-149); VLDL CHOLESTROL 44 mg/dl (8-62 (CALC))
[2022-07-03 08:52] LABS: HEMATOCRIT 45.3 % (39.0-50.0); HEMOGLOBIN 14.9 g/dl (14.0-18.0); IMMATURE GRANULOCYTES 0.4 % (0.0-5.0); MEAN CELL VOLUME 88.5 fL CALC (80.0-100.0); MEAN CORPUSCULAR HGB 29.1 pG CALC (26.0-32.0); MEAN CORPUSCULAR HGB CONC 32.9 g/dL CAL (32.0-36.0); NEUT# 5.7 thou/uL (1.82-7.42); RED BLOOD COUNT 5.12 mill/uL (4.70-6.10); RED CELL DISTRI WIDTH 12.9 % (11.5-15.5)
[2022-07-03] MEDS ORDERED: NORVASC5 M1 PO (10:16)
[2022-07-03] MEDS ORDERED: LISINOPRIL10 MG PO (10:16)
[2022-07-03] MEDS ORDERED: FARXIGA10 MG PO (10:17)
[2022-07-03] MEDS ORDERED: METFORMIN500 M2 PO (10:17)
[2022-07-03] MEDS ORDERED: LIPITOR40 M1 PO (10:17)
[2022-07-03] MEDS ORDERED: ASPIRIN 81 LOW81 MG PO (10:18)
[2022-07-03] MEDS ORDERED: ZOLOFT25 MG PO (10:19)
[2022-07-03 11:15] VITALS: BP 160/107
[2022-07-03 11:52] LABS: ALBUMIN 3.7 g/dL (3.2-5.0); BILIRUBIN, TOTAL 0.6 mg/dL (0.0-1.4); TOTAL PROTEIN 7.1 g/dL (6.3-8.2)
[2022-07-03 12:35] VITALS: BP 151/92
--- NOTE | 2022-07-03 12:35 | NUR ---
PT RESTING IN SEMI FOWLERS POSITION. RESPIRATIONS EVEN AND UNLABORED. REASSESSMENT OF BP AT THIS TIME. TELE MONITORING IN PLACE. #EDWARD REMAINS IN PLACE. PT DENIES OF ANY ADDITIONAL NEEDS. ALL SAFETY PRECAUTIONS ARE IN PLACE WITH CALL LIGHT IN REACH
--- NOTE | 2022-07-03 13:56 | NUR ---
PT EDUCATED ON DC INSTRUCTIONS AND NEW MEDICAITONS. VERBALIZED UNDERSTANDING. IV REMOVED. TELE REMOVED, ER INFORMED. TRANSPORTATION CALLED.
--- NOTE | 2022-07-03 14:39 | NUR ---
FAMILY UNABLE TO SMALL ANIMAL CARETAKER PT. ATTEMPTED TO CALL FOR TAXI, UNABLE TO REACH. WLL CONTNIUE TO CALL. PT INFORMED, VERBALIZED UNDERSTANDING
[2022-07-03 15:33] VITALS: BP 131/103
--- NOTE | 2022-07-03 16:04 | NUR ---
Discharge instructions given. Patient verbalizes understanding of same. Discharged in stable condition via Wheelchair to Home with staff. All belongings sent with pt. DAUGHTER AGREED TO PUBLICITY EXPERT PT. PT REQUESTING TO WAIT DOWN STAIRS. NO SHOES OR SHIRT. HOSPITAL GOWN AND NONSLIP SOCKS PROVIDED.
== END 2022-07-03 16:00 | disposition home or self-care (01) ==
LOC: ED 11:39 → ED-I 16:40 → ED 19:36 → MS2 19:37
PROVIDERS: Family Medicine; Nurse Practitioner; ADMIT Internal Medicine; ATTEND Internal Medicine
DX: R07.89 Other chest pain (principal); E11.65 Type 2 diabetes mellitus with hyperglycemia; I11.0 Hypertensive heart disease with heart failure; I50.9 Heart failure, unspecified; I25.10 Atherosclerotic heart disease of native coronary artery without angina pectoris; E78.5 Hyperlipidemia, unspecified; J44.9 Chronic obstructive pulmonary disease, unspecified; G40.909 Epilepsy, unspecified, not intractable, without status epilepticus; N40.0 Benign prostatic hyperplasia without lower urinary tract symptoms; F43.20 Adjustment disorder, unspecified; T50.916A Underdosing of multiple unspecified drugs, medicaments and biological substances, initial encounter; Z91.128 Patient's intentional underdosing of medication regimen for other reason; Z63.5 Disruption of family by separation and divorce; Z20.822 Contact with and (suspected) exposure to COVID-19; Z23 Encounter for immunization
CPT/HCPCS: G0378; J1650; Q9967

== ENCOUNTER 2023-05-11 13:18 | Emergency (ER) | payer OTHER ==
[2023-05-11] VITALS (7 sets, daily range): BP systolic 141–279; BP diastolic 82–221
[~2023-05-11] VITALS: Ht 182.9 cm; Wt 123.7 kg
[~2023-05-11 13:18] MED LIST changes: +ASPIRIN 81 LOW81 MG PO; +FARXIGA10 MG PO; +LIPITOR40 M1 PO; +NORVASC5 M1 PO; +ZOLOFT25 MG PO
== END 2023-05-11 16:24 | disposition home or self-care (01) ==
LOC: ED 13:18
DX: M54.50 Low back pain, unspecified (principal); I10 Essential (primary) hypertension; E11.9 Type 2 diabetes mellitus without complications; J44.9 Chronic obstructive pulmonary disease, unspecified; G40.909 Epilepsy, unspecified, not intractable, without status epilepticus; Z79.84 Long term (current) use of oral hypoglycemic drugs

== ENCOUNTER 2023-05-15 16:34 | Inpatient (IN) | payer OTHER ==
[2023-05-15] VITALS (11 sets, daily range): BP systolic 132–207; BP diastolic 96–135
[~2023-05-15] VITALS: Ht 182.9 cm; Wt 123.1 kg
--- NOTE | 2023-05-15 16:35 | NUR ---
PT TO ROOM VIA WHEELCHAIR
--- NOTE | 2023-05-15 17:36 | NUR ---
PT LAYING IN BED C/O BACK PAIN STARTED LAST SATURDAY PAIN 09/03; ALSO STATED HE WAS HERE LAST SATURDAY FOR SAME PROBLEM; ORIENT TO ROOM AND CALL MCDERMOTT.
--- NOTE | 2023-05-15 17:59 | NUR ---
MEDICATED PER EMAR.
[2023-05-15 18:05] LABS: BASO% 0.5 % (0-3); EOS% 1.3 % (0-8); HEMATOCRIT 42.7 % (39.0-50.0); HEMOGLOBIN 13.7 g/dl (14.0-18.0); IMMATURE GRANULOCYTES 0.2 % (0.0-5.0); MEAN CELL VOLUME 91.8 fL CALC (80.0-100.0); MEAN CORPUSCULAR HGB 29.5 pG CALC (26.0-32.0); MEAN CORPUSCULAR HGB CONC 32.1 g/dL CAL (32.0-36.0); MONO% 6.5 % (2-13); NEUT# 8.76 thou/uL (1.82-7.42); NEUT% 79.5 % (42-76); RED BLOOD COUNT 4.65 mill/uL (4.70-6.10)
[2023-05-15 18:27] LABS: ALBUMIN 3.7 g/dL (3.2-5.0); BILIRUBIN, TOTAL 0.2 mg/dL (0.2-1.3); CREATININE 1.7 mg/dL (0.7-1.3); POTASSIUM 4.9 mmol/l (3.5-5.1); TOTAL PROTEIN 6.4 g/dL (6.3-8.2)
--- NOTE | 2023-05-15 19:22 | NUR ---
NURSE ATTEMPTING TO GET AN IV
--- NOTE | 2023-05-15 20:26 | NUR ---
PT IN ROOM. HR IS HIGH, MD ORDERED MEDICATION AND IS BEING GIVEN BY LULA SWARTZ.
[2023-05-15 21:48] LABS: TSH, 3RD GENERATION 2.12 uIU/mL (0.47 - 4.68)
--- NOTE | 2023-05-15 21:51 | NUR ---
WAITING ON URINE RESULTS
--- NOTE | 2023-05-15 21:51 | NUR ---
PT IN ROOM. NO DISTRESS NOTED. FLUIDS FINISHED
--- NOTE | 2023-05-15 21:59 | NUR ---
REPORT GIVEN TO LULA SWARTZ. CARE RELINQUISHED
[2023-05-15 22:07] LABS: URINE BILIRUBIN - DIPSTICK NEGATIVE (NEGATIVE); URINE BLOOD DIPSTICK NEGATIVE (NEGATIVE); URINE COLOR YELLOW; URINE GLUCOSE - DIPSTICK NEGATIVE (NEGATIVE); URINE KETONE NEGATIVE (NEGATIVE); URINE LEUK ESTERASE NEGATIVE (NEGATIVE); URINE PROTEIN - DIPSTICK 100 mg/dL (NEG-TRACE); URINE SPECIFIC GRAVITY 1.025; URINE UROBILINOGEN - DIPSTICK 0.2 E.U./dL (0.2)
[2023-05-15 22:08] LABS: URINE NITRITE - DIPSTICK NEGATIVE (Negative); URINE RBC 0-2 RBC/hpf (0-5); URINE WBC 0-2 WBC/hpf (0-5)
--- NOTE | 2023-05-15 23:59 | NUR ---
REPORT TO LULA VIEIRA/ICU. PT WAS GIVEN 1ST DOSE OF HYDRALAZINE....10 MG.
[2023-05-16] VITALS (28 sets, daily range): BP systolic 123–168; BP diastolic 63–121
--- NOTE | 2023-05-16 00:28 | NUR ---
BP 160/102 AFTER 2ND 10 MG DOSE OF HYDRALAZINE. PT ASSISTED TO W/C AND TAKEN TO ICU ON CARDIZEM DRIP/MONITOR/PULSE OX. NAD. HR 92
--- NOTE | 2023-05-16 02:17 | NUR ---
PT TO ICU AT 0020 BY MAXIME COTTON IN WC, ON MONITOR AND CARDIZEM GTT WITH NAD. TRANS FROM WC TO BED INDEPENDENTLY AND ATTACHED TO MONITORS. PT SAFETY WAS DISCUSSED, AGREED TO USE CALL LIGHT AND NOT TO GET UP WITH OUT ASSISTANCE PT IS RESTING COMFORTABLY IN BED WITH NAD. BED IN THE LOWEST POSITION WITH URINAL, BS TABLE AND CALL LIGHT WITH IN REACH.WILL CONTINUE TO MONITOR.
--- NOTE | 2023-05-16 04:12 | NUR ---
PT RESTING COMFORTABLY IN BED WITH EYES CLOSED. PT CARDIZEM GTT OFF AT THIS TIME. PT HAD SEVERAL APNIC EPISODES WHILE SLEEPING AND WOULD GO INTO A 6 TO 1 CONDUCTION WITH HR IN THE 40'S, EKG PRINTED AND IN CHART. PT WAS WOKE UP AND REPOSITIONED, STATED HE FELT FINE WITH NO SIGNS OF DISTRESS, NO C/O CHEST PAIN OR SOB. HR NOW IN THE 90'S. WILL CONTINUE TO MONITOR.
--- NOTE | 2023-05-16 08:00 | NUR ---
RECEIVED REPORT FROM SENIOR GRAPHIC DESIGNER, PATIENT RESTING IN BED. PATIENT IS A/O X3. PATIENT IS ON RA WITH CLEAR LUNG SOUNDS BILATERALLY. PATIENT IS A-FLUTTER ON THE MONITOR. DENIES ANY CHEST PAIN OR SOB. PATIENT'S CARDIZEM DRIP RESTARTED AT 0730 WITH A RATE OF 10MG/ML. SKIN IS INTACT BUT DIRTY. ROUNDING AT BEDSIDE NOW.
--- NOTE | 2023-05-16 10:00 | NUR ---
NO CHANGE IN PATIENT STATUS. PATIENT DENIES ANY COMPLAINTS AT THIS TIME.
--- NOTE | 2023-05-16 12:00 | NUR ---
PATIENT EATING LUNCH. DENIES ANY COMPLAINTS AT THIS TIME. CARDIOLOGY CONSULT COMPLETED.
[2023-05-16 12:12] LABS: CHOLESTEROL HDL RATIO 6.3 (<4.4 (CALC))
--- NOTE | 2023-05-16 14:00 | NUR ---
NO CHANGE AT THIS TIME. PATIENT RESTING IN BED. CHEST RISE AND FALL NOTED.
--- NOTE | 2023-05-16 16:00 | NUR ---
PATIENT HAS VISITOR AT BEDSIDE. DENIES ANY COMPLAINTS AT THIS TIME. NO CHANGE IN PATIENT STATUS.
--- NOTE | 2023-05-16 16:50 | NUR ---
CARDIZEM DRIP HAS BEEN WEANED OFF PER MD ORDERS.
--- NOTE | 2023-05-16 18:00 | NUR ---
PATIENT IS RESTING IN BED COMFORTABLY, WATCHING TV. PATIENT DENIES ANY COMPLAINTS AT THIS TIME. NO CHANGE IN PATIENT STATUS AT THIS TIME.
--- NOTE | 2023-05-16 21:24 | NUR ---
PT RESTING COMFORTABLY IN BED WATCHING TV WITH NAD AND VSS. PT GAVE HIM SELF A BATH INDEPENDENTLY AND HAD A COMPLETE LINEN CHANGE. PT STILL IN A-FLUTTER WITH A CONTROLLED RATE 70'S-80'S. BED IN THE LOWEST POSITION WITH BED SIDE TABLE AND CALL LIGHT WITH IN REACH. WILL CONTINUE TO MONITOR.
[2023-05-17] VITALS (17 sets, daily range): BP systolic 100–189; BP diastolic 53–114
--- NOTE | 2023-05-17 02:12 | NUR ---
PT RESTING COMFORTABLY IN BED WITH EYES CLOSED WITH NAD AND VSS. BED IN THE LOWEST POSITION WITH BED SIDE TABLE AND CALL LIGHT WITH IN REACH. WILL CONTINUE TO MONITOR.
[2023-05-17 06:13] LABS: HEMATOCRIT 40.9 % (39.0-50.0); HEMOGLOBIN 13.2 g/dl (14.0-18.0); MEAN CELL VOLUME 92.5 fL CALC (80.0-100.0); MEAN CORPUSCULAR HGB 29.9 pG CALC (26.0-32.0); MEAN CORPUSCULAR HGB CONC 32.3 g/dL CAL (32.0-36.0); RED BLOOD COUNT 4.42 mill/uL (4.70-6.10); RED CELL DISTRI WIDTH 12.7 % (11.5-15.5)
[2023-05-17 06:26] LABS: ALBUMIN 3.4 g/dL (3.2-5.0); BILIRUBIN, TOTAL 0.2 mg/dL (0.2-1.3); CREATININE 1.8 mg/dL (0.7-1.3); MAGNESIUM 1.7 mg/dL (1.6-2.3); POTASSIUM 4.5 mmol/l (3.5-5.1); TOTAL PROTEIN 6.3 g/dL (6.3-8.2)
--- NOTE | 2023-05-17 08:00 | NUR ---
Patient lying in bed. States he has some pain in his low back, but does not need any medication at this time. Patient is controlled aflutter on the monitor. Lungs sounds clear. Breathing even and unlabored. No apparent distress noted. Will continue to monitor.
--- NOTE | 2023-05-17 09:58 | NUR ---
Patient appears to be resting with eyes closed. Patient is in aflutter on the monitor. No s/s of distress at this time. Will continue to monitor.
--- NOTE | 2023-05-17 12:00 | NUR ---
Patient is lying in bed resting. NAD. Bed in low position. Will continue to monitor.
[2023-05-17] MEDS ORDERED: CARDIZEM CD120 MG PO (12:35)
[2023-05-17] MEDS ORDERED: FARXIGA5 MG PO (12:36)
[2023-05-17] MEDS ORDERED: ELIQUIS2.5 MG PO (12:36)
[2023-05-17] MEDS ORDERED: ASPIRIN81 MG PO (12:37)
[2023-05-17] MEDS ORDERED: HYDRALAZINE HCL50 MG PO (12:38)
--- NOTE | 2023-05-17 13:43 | NUR ---
Discharge instructions given. Patient verbalizes understanding of same. Discharged in stable condition via Ambulatory to Home with staff. All belongings sent with pt.
--- NOTE | 2023-05-17 14:00 | NUR ---
Patient sitting up in bed watching tv. Patient denies any pain at this time. Aflutter on the monitor. NAD noted. Will continue to monitor.
== END 2023-05-17 13:43 | disposition home or self-care (01) | DRG 310 ==
LOC: ED 16:34 → ED-I 22:23 → ED 22:39 → ICU 22:40
PROVIDERS: Emergency Medicine; Internal Medicine; Nurse Practitioner; ADMIT Internal Medicine; ATTEND Internal Medicine
DX: I48.91 Unspecified atrial fibrillation (principal); I48.92 Unspecified atrial flutter; I12.9 Hypertensive chronic kidney disease with stage 1 through stage 4 chronic kidney disease, or unspecified chronic kidney disease; E11.22 Type 2 diabetes mellitus with diabetic chronic kidney disease; N18.30 Chronic kidney disease, stage 3 unspecified; E11.65 Type 2 diabetes mellitus with hyperglycemia; M54.2 Cervicalgia; J44.9 Chronic obstructive pulmonary disease, unspecified; I25.10 Atherosclerotic heart disease of native coronary artery without angina pectoris; E78.5 Hyperlipidemia, unspecified; G40.909 Epilepsy, unspecified, not intractable, without status epilepticus; N40.0 Benign prostatic hyperplasia without lower urinary tract symptoms; T50.916A Underdosing of multiple unspecified drugs, medicaments and biological substances, initial encounter; Z91.128 Patient's intentional underdosing of medication regimen for other reason; Z79.84 Long term (current) use of oral hypoglycemic drugs
CPT/HCPCS: J1650; Q9967

== ENCOUNTER 2023-05-30 07:43 | Emergency (ER) | payer OTHER ==
[~2023-05-30] VITALS: Ht 182.9 cm; Wt 123.8 kg
[~2023-05-30 07:43] MED LIST changes: +ASPIRIN81 MG PO; +CARDIZEM CD120 MG PO; +ELIQUIS2.5 MG PO; +HYDRALAZINE HCL50 MG PO
[2023-05-30 08:26] LABS: BASO% 0.6 % (0-3); EOS% 1.6 % (0-8); HEMATOCRIT 37.8 % (39.0-50.0); HEMOGLOBIN 11.7 g/dl (14.0-18.0); IMMATURE GRANULOCYTES 0.2 % (0.0-5.0); LYMPH% 10.8 % (15-41); MEAN CELL VOLUME 93.8 fL CALC (80.0-100.0); MONO% 7.1 % (2-13); NEUT# 6.48 thou/uL (1.82-7.42); NEUT% 79.7 % (42-76); RED BLOOD COUNT 4.03 mill/uL (4.70-6.10)
[2023-05-30 08:43] LABS: ALBUMIN 3.5 g/dL (3.2-5.0); BILIRUBIN, TOTAL 0.2 mg/dL (0.2-1.3); CREATININE 1.6 mg/dL (0.7-1.3); POTASSIUM 4.5 mmol/l (3.5-5.1); TOTAL PROTEIN 6.5 g/dL (6.3-8.2)
[2023-05-30 08:46] LABS: D-DIMER 0.45 mg/L (0.19-0.60)
[2023-05-30 08:51] LABS: ACT PARTIAL THROMBO TIME 24.6 SECONDS (20.0-32.5); PROTHROMBIN TIME 9.7 SECONDS (9.0-12.5)
[2023-05-30 09:21] LABS: TSH, 3RD GENERATION 1.16 uIU/mL (0.47 - 4.68)
[2023-05-30 13:43] VITALS: BP 135/90
== END 2023-05-30 14:09 | disposition home or self-care (01) ==
LOC: ED 07:43
PROVIDERS: Family Medicine
DX: R07.89 Other chest pain (principal); E86.0 Dehydration; I10 Essential (primary) hypertension; I48.91 Unspecified atrial fibrillation; I25.2 Old myocardial infarction; E11.9 Type 2 diabetes mellitus without complications; J44.9 Chronic obstructive pulmonary disease, unspecified; G40.909 Epilepsy, unspecified, not intractable, without status epilepticus

== ENCOUNTER 2023-06-08 17:52 | Emergency (ER) | payer OTHER ==
[~2023-06-08] VITALS: Ht 182.9 cm; Wt 147.4 kg
[2023-06-08] VITALS (9 sets, daily range): BP systolic 114–168; BP diastolic 59–122
[2023-06-08 18:28] LABS: BASO% 0.7 % (0-3); EOS% 1.3 % (0-8); HEMATOCRIT 40.9 % (39.0-50.0); HEMOGLOBIN 12.7 g/dl (14.0-18.0); IMMATURE GRANULOCYTES 0.2 % (0.0-5.0); LYMPH% 12.8 % (15-41); MEAN CELL VOLUME 93.2 fL CALC (80.0-100.0); MEAN CORPUSCULAR HGB 28.9 pG CALC (26.0-32.0); MEAN CORPUSCULAR HGB CONC 31.1 g/dL CAL (32.0-36.0); MONO% 5.8 % (2-13); NEUT# 8.2 thou/uL (1.82-7.42); NEUT% 79.2 % (42-76); RED BLOOD COUNT 4.39 mill/uL (4.70-6.10); RED CELL DISTRI WIDTH 12.9 % (11.5-15.5)
[2023-06-08 18:47] LABS: ALBUMIN 3.8 g/dL (3.2-5.0); CREATININE 1.5 mg/dL (0.7-1.3); POTASSIUM 4.2 mmol/l (3.5-5.1); TOTAL PROTEIN 7.3 g/dL (6.3-8.2)
[2023-06-08 18:48] LABS: D-DIMER 0.34 mg/L (0.19-0.60)
[2023-06-08 18:49] LABS: BILIRUBIN, TOTAL 0.8 mg/dL (0.2-1.3)
[2023-06-08 18:52] LABS: PROTHROMBIN TIME 10.1 SECONDS (9.0-12.5)
[2023-06-08] MEDS ORDERED: LORTAB 5/3255 MG PO (19:20)
[2023-06-08] MEDS ORDERED: CARDIZEM CD240 MG PO (20:33)
[2023-06-08 21:18] LABS: URINE BILIRUBIN - DIPSTICK NEGATIVE (NEGATIVE); URINE BLOOD DIPSTICK NEGATIVE (NEGATIVE); URINE COLOR YELLOW; URINE GLUCOSE - DIPSTICK >=1000 mg/dL (NEGATIVE); URINE KETONE TRACE mg/dL (NEGATIVE); URINE LEUK ESTERASE NEGATIVE (NEGATIVE); URINE PROTEIN - DIPSTICK 30 mg/dL (NEG-TRACE)
[2023-06-08 21:19] LABS: URINE NITRITE - DIPSTICK NEGATIVE (Negative)
[2023-06-08 21:26] LABS: URINE MUCUS FEW hpf (NONE-FEW); URINE SQUAMOUS EPITHELIAL CELL FEW EPI/hpf (0-FEW); URINE WBC 0-2 WBC/hpf (0-5)
== END 2023-06-08 21:16 | disposition home or self-care (01) ==
LOC: ED 17:52
PROVIDERS: Family Medicine
DX: I11.0 Hypertensive heart disease with heart failure (principal); I50.9 Heart failure, unspecified; I48.92 Unspecified atrial flutter; E11.9 Type 2 diabetes mellitus without complications; J44.9 Chronic obstructive pulmonary disease, unspecified; G40.909 Epilepsy, unspecified, not intractable, without status epilepticus; Z79.01 Long term (current) use of anticoagulants; Z20.822 Contact with and (suspected) exposure to COVID-19

== ENCOUNTER 2023-07-14 01:30 | Observation (INO) | payer OTHER ==
[2023-07-14] VITALS (73 sets, daily range): BP systolic 74–171; BP diastolic 48–103
[~2023-07-14] VITALS: Ht 182.9 cm; Wt 113.0 kg
[~2023-07-14 01:30] MED LIST changes: +CARDIZEM CD240 MG PO; +LORTAB 5/3255 MG PO
[2023-07-14 01:56] LABS: BASO% 0.7 % (0-3); HEMATOCRIT 41.7 % (39.0-50.0); HEMOGLOBIN 13.4 g/dl (14.0-18.0); IMMATURE GRANULOCYTES 0.9 % (0.0-5.0); LYMPH% 14.4 % (15-41); MEAN CELL VOLUME 91.9 fL CALC (80.0-100.0); MEAN CORPUSCULAR HGB 29.5 pG CALC (26.0-32.0); MEAN CORPUSCULAR HGB CONC 32.1 g/dL CAL (32.0-36.0); NEUT# 8.73 thou/uL (1.82-7.42); RED BLOOD COUNT 4.54 mill/uL (4.70-6.10); RED CELL DISTRI WIDTH 12.7 % (11.5-15.5)
[2023-07-14 02:20] LABS: INTERNATIONAL NORMALIZED RATIO 1.1 RATIO (0.7-1.3); PROTHROMBIN TIME 10.6 SECONDS (9.0-12.5)
[2023-07-14 02:22] LABS: ALBUMIN 3.5 g/dL (3.2-5.0); BILIRUBIN, TOTAL 0.7 mg/dL (0.2-1.3); CREATININE 1.6 mg/dL (0.7-1.3); POTASSIUM 3.8 mmol/l (3.5-5.1); TOTAL PROTEIN 6.7 g/dL (6.3-8.2)
[2023-07-14 02:38] LABS: URINE BILIRUBIN - DIPSTICK Negative (NEGATIVE); URINE BLOOD DIPSTICK Negative (NEGATIVE); URINE COLOR Yellow; URINE GLUCOSE - DIPSTICK Negative (NEGATIVE); URINE KETONE Trace mg/dL (NEGATIVE); URINE LEUK ESTERASE Negative (NEGATIVE); URINE NITRITE - DIPSTICK Negative (Negative); URINE PH 5.5 (4.5-8.0); URINE PROTEIN - DIPSTICK 100 mg/dL (NEG-TRACE); URINE UROBILINOGEN - DIPSTICK 0.2 E.U./dL (0.2)
[2023-07-14 02:42] LABS: URINE BACTERIA FEW hpf; URINE EPITHELIAL CELLS FEW EPI/hpf (0-FEW); URINE FINE GRAN CAST FEW lpf; URINE HYALINE CAST FEW lpf (NONE-RARE); URINE RBC 0-2 RBC/hpf (0-5); URINE WBC 0-2 WBC/hpf (0-5)
[2023-07-15] VITALS (18 sets, daily range): BP systolic 96–137; BP diastolic 61–94
[2023-07-15 10:18] LABS: CREATININE 1.5 mg/dL (0.7-1.3); MAGNESIUM 2.1 mg/dL (1.6-2.3)
[2023-07-15 10:34] LABS: POTASSIUM 4.7 mmol/l (3.5-5.1)
== END 2023-07-15 21:55 | disposition short-term general hospital (02) ==
LOC: ED 01:30 → ED-I 03:40 → ED 04:21 → ICU 04:22
PROVIDERS: Emergency Medicine; ADMIT Student in an Organized Health Care Education/Training Program; ATTEND Student in an Organized Health Care Education/Training Program
DX: I48.92 Unspecified atrial flutter (principal); R79.89 Other specified abnormal findings of blood chemistry; I48.91 Unspecified atrial fibrillation; I25.110 Atherosclerotic heart disease of native coronary artery with unstable angina pectoris; I13.0 Hypertensive heart and chronic kidney disease with heart failure and stage 1 through stage 4 chronic kidney disease, or unspecified chronic kidney disease; I50.9 Heart failure, unspecified; E11.22 Type 2 diabetes mellitus with diabetic chronic kidney disease; N18.30 Chronic kidney disease, stage 3 unspecified; J44.9 Chronic obstructive pulmonary disease, unspecified; G40.909 Epilepsy, unspecified, not intractable, without status epilepticus; N40.0 Benign prostatic hyperplasia without lower urinary tract symptoms; Z91.199 Patient's noncompliance with other medical treatment and regimen due to unspecified reason; Z79.01 Long term (current) use of anticoagulants; Z20.822 Contact with and (suspected) exposure to COVID-19

== ENCOUNTER 2023-07-31 00:42 | Emergency (ER) | payer OTHER ==
[2023-07-31] VITALS (16 sets, daily range): BP systolic 143–202; BP diastolic 79–118
[~2023-07-31] VITALS: Ht 182.9 cm; Wt 136.0 kg
[2023-07-31 01:40] LABS: BASO% 0.6 % (0-3); EOS% 1.1 % (0-8); IMMATURE GRANULOCYTES 0.8 % (0.0-5.0); LYMPH% 9.7 % (15-41); MEAN CORPUSCULAR HGB CONC 31.6 g/dL CAL (32.0-36.0); MONO% 12.9 % (2-13); NEUT# 7.29 thou/uL (1.82-7.42); NEUT% 74.9 % (42-76); RED BLOOD COUNT 3.2 mill/uL (4.70-6.10)
[2023-07-31 01:41] LABS: HEMATOCRIT 30.4 % (39.0-50.0); HEMOGLOBIN 9.6 g/dl (14.0-18.0)
[2023-07-31 01:54] LABS: ALBUMIN 3.3 g/dL (3.2-5.0); CREATININE 1.7 mg/dL (0.7-1.3); MAGNESIUM 1.9 mg/dL (1.6-2.3); POTASSIUM 4.8 mmol/l (3.5-5.1); TOTAL PROTEIN 6.7 g/dL (6.3-8.2)
[2023-07-31 01:57] LABS: BILIRUBIN, TOTAL 0.3 mg/dL (0.2-1.3)
[2023-07-31 02:03] LABS: D-DIMER 2.48 mg/L (0.19-0.60)
[2023-07-31 02:10] LABS: ACT PARTIAL THROMBO TIME 29.9 SECONDS (20.0-32.5); INTERNATIONAL NORMALIZED RATIO 1.2 RATIO (0.7-1.3); PROTHROMBIN TIME 11.3 SECONDS (9.0-12.5)
[2023-07-31 04:32] LABS: URINE BILIRUBIN - DIPSTICK Negative (NEGATIVE); URINE BLOOD DIPSTICK Negative (NEGATIVE); URINE GLUCOSE - DIPSTICK Negative (NEGATIVE); URINE KETONE Negative (NEGATIVE); URINE LEUK ESTERASE Negative (NEGATIVE); URINE NITRITE - DIPSTICK Negative (Negative); URINE PROTEIN - DIPSTICK Negative (NEG-TRACE); URINE UROBILINOGEN - DIPSTICK 0.2 E.U./dL (0.2)
[2023-07-31 04:33] LABS: URINE COLOR Yellow
== END 2023-07-31 04:50 | disposition home or self-care (01) ==
LOC: ED 00:42
PROVIDERS: Family Medicine
DX: J44.1 Chronic obstructive pulmonary disease with (acute) exacerbation (principal); J81.1 Chronic pulmonary edema; I10 Essential (primary) hypertension; E11.9 Type 2 diabetes mellitus without complications; I48.91 Unspecified atrial fibrillation; I48.92 Unspecified atrial flutter; G40.909 Epilepsy, unspecified, not intractable, without status epilepticus; Z95.1 Presence of aortocoronary bypass graft
CPT/HCPCS: Q9967

== ENCOUNTER 2023-08-01 17:55 | Emergency (ER) | payer OTHER ==
[~2023-08-01] VITALS: Ht 182.9 cm; Wt 124.2 kg
[2023-08-01] VITALS (20 sets, daily range): BP systolic 111–149; BP diastolic 77–101
[2023-08-01 18:25] LABS: BASO% 0.3 % (0-3); HEMATOCRIT 34.5 % (39.0-50.0); HEMOGLOBIN 10.7 g/dl (14.0-18.0); IMMATURE GRANULOCYTES 0.9 % (0.0-5.0); LYMPH% 11.3 % (15-41); MEAN CORPUSCULAR HGB 29.5 pG CALC (26.0-32.0); MONO% 11.3 % (2-13); NEUT# 8.56 thou/uL (1.82-7.42); NEUT% 75.2 % (42-76); RED BLOOD COUNT 3.63 mill/uL (4.70-6.10); RED CELL DISTRI WIDTH 13.4 % (11.5-15.5)
[2023-08-01 18:51] LABS: ALBUMIN 3.6 g/dL (3.2-5.0); BILIRUBIN, TOTAL 0.4 mg/dL (0.2-1.3); CREATININE 1.8 mg/dL (0.7-1.3); POTASSIUM 4.4 mmol/l (3.5-5.1)
== END 2023-08-01 23:25 | disposition short-term general hospital (02) ==
LOC: ED 17:55
PROVIDERS: Nurse Practitioner
DX: I25.119 Atherosclerotic heart disease of native coronary artery with unspecified angina pectoris (principal); R79.89 Other specified abnormal findings of blood chemistry; I11.0 Hypertensive heart disease with heart failure; I50.9 Heart failure, unspecified; E11.9 Type 2 diabetes mellitus without complications; J44.9 Chronic obstructive pulmonary disease, unspecified; G40.909 Epilepsy, unspecified, not intractable, without status epilepticus; Z95.1 Presence of aortocoronary bypass graft; Z95.2 Presence of prosthetic heart valve

== ENCOUNTER 2024-06-26 03:04 | Inpatient (IN) | payer OTHER ==
[2024-06-26] VITALS (54 sets, daily range): BP systolic 93–182; BP diastolic 67–135
[~2024-06-26] VITALS: Ht 182.9 cm; Wt 118.2 kg
[2024-06-26] MEDS ORDERED: BUMETANIDE 1 MG/4 ML VIAL IV ONE (03:25)
[2024-06-26] MEDS ORDERED: dilTIAZem HCL 50 MG/10 ML SDV IV ONE ×2 (03:25→04:15)
[2024-06-26] MEDS ORDERED: ASPIRIN 81 MG/TAB PO ONE (03:25)
[2024-06-26] MEDS ORDERED: SODIUM CHLORIDE 0.9% 500 ML IV ONE (03:25)
[2024-06-26] MEDS ORDERED: DILTIAZEM HCL 125 MG in SODIUM CHLORIDE 0.9% 100 ML IV ONE (03:25)
[2024-06-26] MEDS ORDERED: DIGOXIN 0.5 MG/2 ML AMP IV ONE ×2 (03:50→05:30)
[2024-06-26 03:54] LABS: BASO% 0.5 % (0-3); EOS% 1.5 % (0-8); IMMATURE GRANULOCYTES 0.1 % (0.0-5.0); LYMPH% 6.5 % (15-41); MEAN CELL VOLUME 92.6 fL CALC (80.0-100.0); MEAN CORPUSCULAR HGB 29.8 pG CALC (26.0-32.0); MEAN CORPUSCULAR HGB CONC 32.1 g/dL CAL (32.0-36.0); MONO% 5.2 % (2-13); NEUT# 11.6 thou/uL (1.82-7.42); NEUT% 86.2 % (42-76); RED BLOOD COUNT 4.47 mill/uL (4.70-6.10); RED CELL DISTRI WIDTH 13.1 % (11.5-15.5)
[2024-06-26 03:56] LABS: HEMATOCRIT 41.4 % (39.0-50.0); HEMOGLOBIN 13.3 g/dl (14.0-18.0)
[2024-06-26 04:33] LABS: ALBUMIN 3.9 g/dL (3.2-5.0); CREATININE 1.4 mg/dL (0.7-1.3); POTASSIUM 3.8 mmol/l (3.5-5.1); TOTAL PROTEIN 7.2 g/dL (6.3-8.2)
[2024-06-26 04:35] LABS: BILIRUBIN, TOTAL 0.8 mg/dL (0.2-1.3)
[2024-06-26 04:36] LABS: ACT PARTIAL THROMBO TIME 26.7 SECONDS (20.0-32.5); INTERNATIONAL NORMALIZED RATIO 1.1 RATIO (0.7-1.3)
[2024-06-26 04:41] LABS: PROTHROMBIN TIME 10.3 SECONDS (9.0-12.5)
[2024-06-26 04:44] LABS: D-DIMER 0.59 mg/L (0.19-0.60)
[2024-06-26 05:12] LABS: URINE BILIRUBIN - DIPSTICK Negative (NEGATIVE); URINE BLOOD DIPSTICK Negative (NEGATIVE); URINE GLUCOSE - DIPSTICK Negative (NEGATIVE); URINE KETONE Negative (NEGATIVE); URINE LEUK ESTERASE Negative (NEGATIVE); URINE NITRITE - DIPSTICK Negative (Negative); URINE PH 5.5 (4.5-8.0); URINE PROTEIN - DIPSTICK Negative (NEG-TRACE); URINE UROBILINOGEN - DIPSTICK 0.2 E.U./dL (0.2)
[2024-06-26 05:28] LABS: URINE COLOR Yellow
[2024-06-26] MEDS ORDERED: IBUPROFEN 800 MG/TAB PO PRN (06:30)
[2024-06-26] MEDS ORDERED: ALUM & MAG HYDROX-SIMETHICONE 30 ML PO PRN (06:30)
[2024-06-26] MEDS ORDERED: FAMOTIDINE 10MG/ML 2ML SDV IV PRN (06:30)
[2024-06-26] MEDS ORDERED: ONDANSETRON HCl 4 MG/2 ML SDV IV PRN (06:30)
[2024-06-26] MEDS ORDERED: ONDANSETRON 4 MG/TAB ODT PO PRN (06:30)
[2024-06-26] MEDS ORDERED: MAGNESIUM HYDROXIDE 30 ML UDC PO PRN (06:30)
[2024-06-26] MEDS ORDERED: ENOXAPARIN SODIUM 100 MG/ML SYR SC ONE (06:35)
[2024-06-26] MEDS ORDERED: ASPIRIN 81 MG/TAB PO SCH (09:00)
[2024-06-26] MEDS ORDERED: DEXTROSE 250 ML IV PRN (09:05)
[2024-06-26] MEDS ORDERED: PANTOPRAZOLE SODIUM Sesquihydr 40 MG/TAB PO SCH (10:00)
[2024-06-26] MEDS ORDERED: APIXABAN BASE 2.5 MG/TAB TAB PO SCH (10:00)
[2024-06-26] MEDS ORDERED: METOPROLOL TARTRATE 50 MG/TAB PO SCH (10:00)
[2024-06-26] MEDS ORDERED: LISINOPRIL 10 MG/TAB PO SCH (10:00)
[2024-06-26] MEDS ORDERED: INSULIN LISPRO 100 UNITS/ML ML SC SCH (11:00)
[2024-06-26] MEDS ORDERED: AZITHROMYCIN 500 MG in SODIUM CHLORIDE 0.9% 250 ML IV SCH (11:00)
[2024-06-26] MEDS ORDERED: BUMETANIDE 1 MG/4 ML VIAL IV SCH (14:00)
[2024-06-26] MEDS ORDERED: ENOXAPARIN SODIUM 100 MG/ML SYR SC SCH (18:30)
[2024-06-26] MEDS ORDERED: ATORVASTATIN CALCIUM 10 MG/TAB PO SCH (21:00)
[2024-06-27] VITALS (34 sets, daily range): BP systolic 118–168; BP diastolic 77–125
[2024-06-27 06:03] LABS: HEMATOCRIT 43.3 % (39.0-50.0); HEMOGLOBIN 13.9 g/dl (14.0-18.0); MEAN CELL VOLUME 92.9 fL CALC (80.0-100.0); MEAN CORPUSCULAR HGB 29.8 pG CALC (26.0-32.0); MEAN CORPUSCULAR HGB CONC 32.1 g/dL CAL (32.0-36.0); RED BLOOD COUNT 4.66 mill/uL (4.70-6.10); RED CELL DISTRI WIDTH 12.9 % (11.5-15.5)
[2024-06-27 06:41] LABS: CREATININE 1.5 mg/dL (0.7-1.3)
[2024-06-27 06:42] LABS: POTASSIUM 4.6 mmol/l (3.5-5.1)
[2024-06-27] MEDS ORDERED: METOPROLOL TARTRATE 50 MG/TAB PO SCH (13:00)
[2024-06-27] MEDS ORDERED: Polyethylene Glycol 3350 17 GM/PKT PO PRN (20:20)
[2024-06-27] MEDS ORDERED: METOPROLOL TARTRATE 5 MG/5 ML VIAL IV PRN (20:25)
[2024-06-28] VITALS (24 sets, daily range): BP systolic 95–171; BP diastolic 68–121
[2024-06-28 05:38] LABS: HEMATOCRIT 43.8 % (39.0-50.0); HEMOGLOBIN 14.1 g/dl (14.0-18.0); MEAN CELL VOLUME 93.8 fL CALC (80.0-100.0); MEAN CORPUSCULAR HGB 30.2 pG CALC (26.0-32.0); MEAN CORPUSCULAR HGB CONC 32.2 g/dL CAL (32.0-36.0); RED BLOOD COUNT 4.67 mill/uL (4.70-6.10); RED CELL DISTRI WIDTH 12.6 % (11.5-15.5)
[2024-06-28 05:40] LABS: ALBUMIN 3.5 g/dL (3.2-5.0); BILIRUBIN, TOTAL 0.7 mg/dL (0.2-1.3); CREATININE 1.5 mg/dL (0.7-1.3); POTASSIUM 4.9 mmol/l (3.5-5.1); TOTAL PROTEIN 6.4 g/dL (6.3-8.2)
[2024-06-28] MEDS ORDERED: BUMETANIDE 1 MG/4 ML VIAL IV SCH (09:00)
[2024-06-28] MEDS ORDERED: BUMETANIDE 1 MG/TAB PO SCH (09:00)
[2024-06-28] MEDS ORDERED: dilTIAZem HCL 60 MG/TAB PO SCH (21:00)
[2024-06-29 04:06] VITALS: BP 136/84
[2024-06-29 05:04] LABS: HEMOGLOBIN 14.3 g/dl (14.0-18.0); MEAN CELL VOLUME 91.1 fL CALC (80.0-100.0); MEAN CORPUSCULAR HGB 29.6 pG CALC (26.0-32.0); MEAN CORPUSCULAR HGB CONC 32.5 g/dL CAL (32.0-36.0); RED BLOOD COUNT 4.83 mill/uL (4.70-6.10); RED CELL DISTRI WIDTH 12.7 % (11.5-15.5)
[2024-06-29 05:12] LABS: ALBUMIN 3.5 g/dL (3.2-5.0); BILIRUBIN, TOTAL 0.7 mg/dL (0.2-1.3); CREATININE 1.7 mg/dL (0.7-1.3); POTASSIUM 4.5 mmol/l (3.5-5.1); TOTAL PROTEIN 6.4 g/dL (6.3-8.2)
[2024-06-29 07:00] VITALS: BP 147/118
[2024-06-29 09:39] VITALS: BP 118/61
[2024-06-29 11:14] VITALS: BP 122/82
[2024-06-29 15:26] VITALS: BP 121/72
[2024-06-29 19:37] VITALS: BP 140/102
[2024-06-30 00:05] VITALS: BP 129/89
[2024-06-30 05:43] LABS: HEMATOCRIT 45.6 % (39.0-50.0); HEMOGLOBIN 15.1 g/dl (14.0-18.0); MEAN CORPUSCULAR HGB 30.1 pG CALC (26.0-32.0); MEAN CORPUSCULAR HGB CONC 33.1 g/dL CAL (32.0-36.0); RED BLOOD COUNT 5.01 mill/uL (4.70-6.10); RED CELL DISTRI WIDTH 12.6 % (11.5-15.5)
[2024-06-30 06:09] LABS: ALBUMIN 3.7 g/dL (3.2-5.0); BILIRUBIN, TOTAL 0.6 mg/dL (0.2-1.3); CREATININE 1.9 mg/dL (0.7-1.3); MAGNESIUM 2.1 mg/dL (1.6-2.3); POTASSIUM 4.5 mmol/l (3.5-5.1); TOTAL PROTEIN 6.7 g/dL (6.3-8.2)
[2024-06-30 06:41] VITALS: BP 143/100
[2024-06-30 10:22] VITALS: BP 129/83
[2024-06-30 11:27] VITALS: BP 129/83
[2024-06-30 16:19] VITALS: BP 117/90
[2024-06-30 19:20] VITALS: BP 151/91
[2024-06-30] MEDS ORDERED: METOPROLOL TARTRATE 50 MG/TAB PO SCH (21:00)
[2024-07-01 00:17] VITALS: BP 108/78
[2024-07-01 04:33] VITALS: BP 113/86
[2024-07-01 05:37] LABS: BASO% 1.1 % (0-3); EOS% 7.5 % (0-8); HEMATOCRIT 45.5 % (39.0-50.0); HEMOGLOBIN 14.9 g/dl (14.0-18.0); IMMATURE GRANULOCYTES 0.3 % (0.0-5.0); MEAN CELL VOLUME 92.1 fL CALC (80.0-100.0); MEAN CORPUSCULAR HGB 30.2 pG CALC (26.0-32.0); MEAN CORPUSCULAR HGB CONC 32.7 g/dL CAL (32.0-36.0); MONO% 9.2 % (2-13); NEUT# 4.86 thou/uL (1.82-7.42); NEUT% 61.9 % (42-76); RED BLOOD COUNT 4.94 mill/uL (4.70-6.10); RED CELL DISTRI WIDTH 12.7 % (11.5-15.5)
[2024-07-01 05:45] LABS: ALBUMIN 3.7 g/dL (3.2-5.0); BILIRUBIN, TOTAL 0.4 mg/dL (0.2-1.3); CREATININE 1.9 mg/dL (0.7-1.3); MAGNESIUM 2.1 mg/dL (1.6-2.3); POTASSIUM 4.9 mmol/l (3.5-5.1); TOTAL PROTEIN 6.7 g/dL (6.3-8.2)
[2024-07-01 07:02] VITALS: BP 122/95
[2024-07-01 10:38] VITALS: BP 112/78
[2024-07-01] MEDS ORDERED: ELIQUIS5 MG PO (12:30)
[2024-07-01] MEDS ORDERED: METFORMIN500 M2 PO (12:30)
[2024-07-01] MEDS ORDERED: COZAAR25 MG PO (12:32)
[2024-07-01] MEDS ORDERED: BUMETANIDE1 MG PO (12:32)
[2024-07-01] MEDS ORDERED: TOPROL XL100 MG PO (12:34)
== END 2024-07-01 16:21 | disposition home or self-care (01) | DRG 291 ==
LOC: ED 03:04 → ED-I 06:12 → ED 06:32 → ICU 06:33 → MS2 06-28 13:50
PROVIDERS: Family Medicine; Student in an Organized Health Care Education/Training Program; ADMIT Internal Medicine; ATTEND Internal Medicine
DX: I13.0 Hypertensive heart and chronic kidney disease with heart failure and stage 1 through stage 4 chronic kidney disease, or unspecified chronic kidney disease (principal); I50.23 Acute on chronic systolic (congestive) heart failure; J18.9 Pneumonia, unspecified organism; Z59.00 Homelessness unspecified; N17.9 Acute kidney failure, unspecified; E11.22 Type 2 diabetes mellitus with diabetic chronic kidney disease; I48.91 Unspecified atrial fibrillation; N18.31 Chronic kidney disease, stage 3a; J44.9 Chronic obstructive pulmonary disease, unspecified; I25.709 Atherosclerosis of coronary artery bypass graft(s), unspecified, with unspecified angina pectoris; E11.65 Type 2 diabetes mellitus with hyperglycemia; G40.909 Epilepsy, unspecified, not intractable, without status epilepticus; N40.0 Benign prostatic hyperplasia without lower urinary tract symptoms; T50.916A Underdosing of multiple unspecified drugs, medicaments and biological substances, initial encounter; Z91.128 Patient's intentional underdosing of medication regimen for other reason; Z91.199 Patient's noncompliance with other medical treatment and regimen due to unspecified reason; Z95.1 Presence of aortocoronary bypass graft; Z95.2 Presence of prosthetic heart valve; Z95.5 Presence of coronary angioplasty implant and graft
CPT/HCPCS: J1160; J1650

== ENCOUNTER 2024-11-02 18:09 | Observation (INO) | payer OTHER ==
[~2024-11-02] VITALS: Ht 182.9 cm; Wt 123.3 kg
[2024-11-02] VITALS (23 sets, daily range): BP systolic 100–175; BP diastolic 75–150
[~2024-11-02 18:09] MED LIST changes: +ATORVASTATIN CA40 MG PO; +BUMETANIDE1 MG PO; +CORDARONE/200 MG/TAB PO; +COZAAR25 MG PO; +ELIQUIS5 MG PO; +ENTRESTO 24-261 TAB PO; +LASIX 40 MG TAB40 MG PO; +LOSARTAN POTASS25 MG PO; +TOPROL XL100 MG PO; +TOPROL XL25 MG PO; +[UNRECOGNIZED DRUG - REMARK]; +[UNRECOGNIZED DRUG - REMARK]
--- NOTE | 2024-11-02 18:29 | NUR ---
pt to the ed for chest pain and shortness of breath. the pt recently diagnosed with afib. the pt states he was playing with his bulldog and developed the cp. pt states he is also dizzy when standing and has a mild abd pain. no n/v. no fever. denies recent illness.
[2024-11-02 18:35] LABS: BASO% 0.8 % (0-3); EOS% 2.9 % (0-8); HEMATOCRIT 45.6 % (39.0-50.0); IMMATURE GRANULOCYTES 0.2 % (0.0-5.0); LYMPH% 17.4 % (15-41); MEAN CELL VOLUME 92.3 fL CALC (80.0-100.0); MEAN CORPUSCULAR HGB 30.4 pG CALC (26.0-32.0); MEAN CORPUSCULAR HGB CONC 32.9 g/dL CAL (32.0-36.0); MONO% 7.3 % (2-13); NEUT% 71.4 % (42-76); RED BLOOD COUNT 4.94 mill/uL (4.70-6.10); RED CELL DISTRI WIDTH 13.3 % (11.5-15.5)
[2024-11-02] MEDS ORDERED: SODIUM CHLORIDE 0.9% 250 ML IV PRN (18:35)
[2024-11-02] MEDS ORDERED: dilTIAZem HCL 50 MG/10 ML SDV IV ONE (18:35)
[2024-11-02] MEDS ORDERED: DILTIAZEM HCL 125 MG in SODIUM CHLORIDE 0.9% 100 ML IV ONE (18:35)
--- NOTE | 2024-11-02 19:15 | NUR ---
Assumed care of pt. Alert, oriented Xs 4. updated on plan of care
[2024-11-02 19:22] LABS: ALBUMIN 4.5 g/dL (3.2-5.0); ALKALINE PHOSPHATASE 104 u/l (38-126); ANION GAP 17 (6-22 (CALC)); BILIRUBIN, TOTAL 1.2 mg/dL (0.2-1.3); BUN 40 mg/dL (9-20); BUN/CREATININE RATIO 14 (12-20 (CALC)); CARBON DIOXIDE 23 mmol/l (22-30); CHLORIDE 102 mmol/l (95-108); ESTIMATED GFR 24 ML/MIN (>=90 (CALC)); MAGNESIUM 2.3 mg/dL (1.6-2.3); POTASSIUM 4.8 mmol/l (3.5-5.1); SGOT/AST 27 u/l (17-59); SODIUM 137 mmol/l (137-146)
[2024-11-02 19:23] LABS: CREATININE 2.9 mg/dL (0.7-1.3)
[2024-11-02 19:27] LABS: INTERNATIONAL NORMALIZED RATIO 1.1 RATIO (0.7-1.3)
[2024-11-02 19:34] LABS: PROTHROMBIN TIME 11.6 SECONDS (9.0-12.5)
[2024-11-02] MEDS ORDERED: LACTATED RINGER'S 1,000 ML IV ONE (20:05)
[2024-11-02] MEDS ORDERED: MAGNESIUM HYDROXIDE 30 ML UDC PO PRN (21:25)
[2024-11-02] MEDS ORDERED: SODIUM CHLORIDE 0.9% 1,000 ML IV PRN (21:25)
[2024-11-02] MEDS ORDERED: ACETAMINOPHEN 325 MG/TAB PO PRN (21:25)
[2024-11-02] MEDS ORDERED: APIXABAN BASE 5 MG TAB PO SCH (21:26)
[2024-11-02] MEDS ORDERED: AMIODARONE 200 MG/TAB PO SCH (21:27)
[2024-11-02] MEDS ORDERED: METOPROLOL SUCCINATE 25 MG/TAB-TOPROL XL PO SCH (21:27)
--- NOTE | 2024-11-02 22:02 | NUR ---
report called to lizbeth sifuentes
--- NOTE | 2024-11-02 22:25 | NUR ---
59 yr old whie male admitted to icu4 per wc from er. VERY talkative. denies distress. transferred self to bed. bed weight obtained. ivf infusing well. history obtained per pt & er record. oriented to room. fall precautions initiated.
[2024-11-03] VITALS (30 sets, daily range): BP systolic 46–136; BP diastolic 17–112
--- NOTE | 2024-11-03 00:10 | NUR ---
eyes closed. no distress.
--- NOTE | 2024-11-03 02:30 | NUR ---
urine spes collected & sent to lab.
[2024-11-03 02:51] LABS: URINE BLOOD DIPSTICK Negative (NEGATIVE); URINE GLUCOSE - DIPSTICK Negative (NEGATIVE); URINE KETONE Trace mg/dL (NEGATIVE); URINE LEUK ESTERASE Negative (NEGATIVE); URINE NITRITE - DIPSTICK Negative (Negative); URINE PH 5.5 (4.5-8.0); URINE PROTEIN - DIPSTICK 30 mg/dL (NEG-TRACE); URINE SPECIFIC GRAVITY 1.015
[2024-11-03 02:58] LABS: URINE COLOR Yellow
[2024-11-03 03:00] LABS: URINE RBC 0-2 RBC/hpf (0-5)
[2024-11-03 03:01] LABS: URINE BACTERIA MODERATE hpf; URINE COARSE GRANULAR CAST FEW lpf; URINE FINE GRAN CAST FEW lpf; URINE HYALINE CAST FEW lpf (NONE-RARE); URINE MUCUS MODERATE hpf (NONE-FEW)
--- NOTE | 2024-11-03 04:00 | NUR ---
eyes clsed. no distress. alarm security or surveillance monitor shows sinus rhythm.
--- NOTE | 2024-11-03 05:48 | NUR ---
eyes closed. no distress. nurse monitoring shows sinus rhythm.
[2024-11-03 07:35] LABS: EOS% 4.5 % (0-8); HEMATOCRIT 41.3 % (39.0-50.0); HEMOGLOBIN 13.7 g/dl (14.0-18.0); IMMATURE GRANULOCYTES 0.1 % (0.0-5.0); LYMPH% 20.7 % (15-41); MEAN CELL VOLUME 92.6 fL CALC (80.0-100.0); MEAN CORPUSCULAR HGB 30.7 pG CALC (26.0-32.0); MEAN CORPUSCULAR HGB CONC 33.2 g/dL CAL (32.0-36.0); MONO% 8.1 % (2-13); NEUT# 5.42 thou/uL (1.82-7.42); NEUT% 65.6 % (42-76); RED BLOOD COUNT 4.46 mill/uL (4.70-6.10); RED CELL DISTRI WIDTH 13.2 % (11.5-15.5)
[2024-11-03 07:47] LABS: ALBUMIN 3.8 g/dL (3.2-5.0); BILIRUBIN, TOTAL 1.3 mg/dL (0.2-1.3); CREATININE 2.7 mg/dL (0.7-1.3); POTASSIUM 4.7 mmol/l (3.5-5.1); TOTAL PROTEIN 6.7 g/dL (6.3-8.2)
--- NOTE | 2024-11-03 08:00 | NUR ---
REPORT RECEIVED FROM NIGHT NURSE. PT IS A/O. ADMITTED WITH AFIB RVR; CARDIZEM GTT TITRATED OFF AT 0745. PT REMAINS IN AFIB BUT AT CONTROLLED RATE. LUNGS CLEAR; PT IS ON RA. NO COUGH OR SOB NOTED. BS ACTIVE. ABDOMEN DISTENDED/SOFT/NON-TENDER. PULSES STRONG UPPER, WEAK LOWER EXTREMETIES. NO EDEMA. SKIN W/D/I; PT IS SOMEWHAT UNKEMPT AND FEET/LEGS DIRTY. AFEBRILE. PT DENIES ANY PAIN. CALL LIGHT IN REACH. VSS.
--- NOTE | 2024-11-03 10:00 | NUR ---
NO CHANGES TO PT STATUS. LYING IN BED WATCHING TV. CALL LIGHT IN REACH. VSS.
--- NOTE | 2024-11-03 12:00 | NUR ---
NO CHANGES TO PT STATUS. PT EATING LUNCH IN BED. CALL LIGHT IN REACH. VSS.
--- NOTE | 2024-11-03 12:45 | NUR ---
PT DOWNGRADED TO MED-SURG STATUS PER DR. VILLASENOR. PT IS ON 2LNC DUE TO EPISODES OF SLEEP APNEA; PT ASLEEP AT THIS TIME.
--- NOTE | 2024-11-03 15:42 | NUR ---
PT CLEANED/BATHED SELF; NEW GOWN APPLIED. PT DECLINED LINEN CHANGE. IV BECAME DISLODGED DURING THIS; NEW IV STARTED WITHOUT DIFFICULTY IN LEFT UPPER ARM. PT DENIES ANY NEEDS AT THIS TIME. CALL LIGHT IN REACH. VSS.
--- NOTE | 2024-11-03 18:00 | NUR ---
PT ATE ALL OF DINNER IN BED. DENIES ANY OTHER NEEDS. CALL LIGHT IN REACH. VSS.
--- NOTE | 2024-11-03 19:20 | NUR ---
awake. no acute distress. aircraft structural design engineer shows sinus rhythm. po fluids taken well. voids per urinal. fall precautions cont. medicated for h/a per request.
[2024-11-03] MEDS ORDERED: ATORVASTATIN CALCIUM 40 MG/TAB PO SCH (21:00)
--- NOTE | 2024-11-03 22:00 | NUR ---
eyes closed. no distress.
[2024-11-04] VITALS (23 sets, daily range): BP systolic 102–158; BP diastolic 66–132
--- NOTE | 2024-11-04 00:01 | NUR ---
voided per urinal. no c/o.
--- NOTE | 2024-11-04 02:00 | NUR ---
resting quietly. resps even & unlabored. no apparent distress
--- NOTE | 2024-11-04 04:10 | NUR ---
iv positional & restarted.
--- NOTE | 2024-11-04 05:02 | NUR ---
lab here. blood drawn.
[2024-11-04 05:34] LABS: HEMOGLOBIN 13.7 g/dl (14.0-18.0); MEAN CELL VOLUME 96.6 fL CALC (80.0-100.0); MEAN CORPUSCULAR HGB 30.8 pG CALC (26.0-32.0); MEAN CORPUSCULAR HGB CONC 31.9 g/dL CAL (32.0-36.0); RED BLOOD COUNT 4.45 mill/uL (4.70-6.10)
[2024-11-04 05:50] LABS: ALBUMIN 3.5 g/dL (3.2-5.0); CREATININE 2.4 mg/dL (0.7-1.3); MAGNESIUM 2.2 mg/dL (1.6-2.3); POTASSIUM 4.5 mmol/l (3.5-5.1); TOTAL PROTEIN 6.2 g/dL (6.3-8.2)
--- NOTE | 2024-11-04 08:00 | NUR ---
REPORT RECEIVED FROM NIGHT NURSE. PATIENT AXO X3. S1S2 NOTED, A-FIB ON TELE. LUNG SOUNDS CLEAR, NO COUGH OR SOB NOTED. ABDOMEN SOFT, DISTENDED, NON TENDER, WITH ACTIVE BOWEL SOUNDS. PULSES STRONG IN ALL EXTREMITIES. SKIN WDI. CALL LIGHT IN REACH.
--- NOTE | 2024-11-04 08:30 | NUR ---
PATIENT TAKEN OFF BIPAP AND PLACED ON 3L O2 NC. PATIENT SITTING UP IN BED EATING. CALL LIGHT IN REACH.
[2024-11-04] MEDS ORDERED: METOPROLOL SUCCINATE 50 MG/TAB PO SCH (09:00)
[2024-11-04] MEDS ORDERED: DEXTROSE 250 ML IV PRN (10:00)
--- NOTE | 2024-11-04 10:00 | NUR ---
PATIENT LAYING DOWN IN BED ASLEEP. ALL NEEDS MET. CALL LIGHT IN REACH.
[2024-11-04] MEDS ORDERED: ASPIRIN EC 81 MG/TAB PO SCH (10:30)
[2024-11-04] MEDS ORDERED: INSULIN LISPRO 100 UNITS/ML ML SC SCH (11:00)
--- NOTE | 2024-11-04 12:00 | NUR ---
PATIENT LAYING DOWN IN BED WATCHING TV. ALL NEEDS MET. CALL LIGHT IN REACH.
--- NOTE | 2024-11-04 14:00 | NUR ---
PATIENT LAYING DOWN IN BED ASLEEP. ALL NEEDS MET. CALL LIGHT IN REACH.
--- NOTE | 2024-11-04 16:00 | NUR ---
PATIENT SITTING UP IN BED WATCHING TV. ALL NEEDS MET. CALL LIGHT IN REACH.
--- NOTE | 2024-11-04 18:00 | NUR ---
PATIENT LAYING DOWN IN BED RESTING WITH EYES CLOSED. ALL NEEDS MET. CALL LIGHT IN REACH.
--- NOTE | 2024-11-04 19:40 | NUR ---
awake. no c/o voiced. shrimp cleaner shows sinus rhythm 1st degree avb. ivf infusing per rt hand site. po fluids taken well. voids per urinal. fall precautions cont.
[2024-11-05] VITALS (28 sets, daily range): BP systolic 108–176; BP diastolic 65–121
--- NOTE | 2024-11-05 00:01 | NUR ---
eyes closed. no distress. property assessment monitor shows sinus rhythm 1st degree avb.
--- NOTE | 2024-11-05 04:00 | NUR ---
cardiac nurse specialist shows sinus rhythm 1st degree avb.
[2024-11-05 05:46] LABS: HEMATOCRIT 39.8 % (39.0-50.0); HEMOGLOBIN 13.2 g/dl (14.0-18.0); MEAN CELL VOLUME 93.4 fL CALC (80.0-100.0); MEAN CORPUSCULAR HGB CONC 33.2 g/dL CAL (32.0-36.0); RED BLOOD COUNT 4.26 mill/uL (4.70-6.10)
[2024-11-05 06:11] LABS: ALBUMIN 3.6 g/dL (3.2-5.0); TOTAL PROTEIN 6.5 g/dL (6.3-8.2)
--- NOTE | 2024-11-05 08:05 | NUR ---
REPORT RECEIVED FROM LIME KILN AND RECAUSTICIZING OPERATOR. PT DENIES ANY COMPLAINT BUT STATES HE DOES NOT WANT TO GO HOME. HE SAYS HE IS HOMELESS AND DOESNT FEEL LIKE HE CAN GO HOME IN THIS WEATHER. ADVISED PT OF POC, AND CASE MANAGEMENT WOULD BE SPEAKING TO HIM
--- NOTE | 2024-11-05 16:31 | NUR ---
pt resting quietly on bed, no complaints at this time. watching tv and sleeping off and on. vital signs stable.
--- NOTE | 2024-11-05 20:00 | NUR ---
RECEIVED PATIENT IN NURSE TO NURSE HANDOFF. PATIENT AAOX4 AMBULATORY AND INDEPENDENT, DENIES PAIN OR SOB AT THIS TIME. VITALS STABLE WITH NO COMPLAINTS, EDUCATED ON FALL PRECAUTIONS AND CALL LIGHT - DEMONSTRATED UNDERSTANDING. REFUSED 2100 1 UNIT OF INSULIN FOR 161 FSBG. PATIENT RESTING COMFORTABLY WITH CALL LIGHT WITHIN REACH
--- NOTE | 2024-11-05 22:00 | NUR ---
PATIENT DENIES PAIN OR SHORTNESS OF BREATH. REMAINS STABLE, FALL PRECAUTIONS IN PLACE. CALL LIGHT OBSERVED WITHIN REACH.
[2024-11-06] VITALS (14 sets, daily range): BP systolic 108–133; BP diastolic 72–96
--- NOTE | 2024-11-06 | NUR ---
PATIENT OBSERVED SLEEPING COMFORTABLY, REMAINS STABLE WITH NO COMPLAINT OR SIGN OF DISTRESS AND CALL LIGHT WITHIN REACH
--- NOTE | 2024-11-06 04:55 | NUR ---
PATIENT REMAINS STABLE, RESTING COMFORTABLY. DENIES PAIN OR SOB AT THIS TIME. URINAL EMPTIED, 650CC URINE EMPTIED. PT IS DRINKING WELL AND REPORTS NO CONCERNS OR COMPLAINTS. NO SIGN OF DISTRESS NOTED AT THIS TIME. RESTING CALMLY WITH CALL LIGHT WITHIN REACH
[2024-11-06 05:47] LABS: HEMATOCRIT 40.6 % (39.0-50.0); HEMOGLOBIN 13.4 g/dl (14.0-18.0); MEAN CELL VOLUME 95.1 fL CALC (80.0-100.0); MEAN CORPUSCULAR HGB 31.4 pG CALC (26.0-32.0); RED BLOOD COUNT 4.27 mill/uL (4.70-6.10)
[2024-11-06 05:51] LABS: ALBUMIN 3.5 g/dL (3.2-5.0); BILIRUBIN, TOTAL 0.8 mg/dL (0.2-1.3); CREATININE 1.9 mg/dL (0.7-1.3); TOTAL PROTEIN 6.3 g/dL (6.3-8.2)
--- NOTE | 2024-11-06 08:06 | NUR ---
PATIENT SITTING UP IN BED. ASSESSMENT COMPLETED. PATIENT ALERT AND ORIENTED X 4. DENIES PAIN. LUNGS CLEAR TO ASCULTATION. BREATHING EVEN AND UNLABORED ON ROOM AIR. AFEBRILE 97.7. GLU 122. DENIES CONCERNS AT THIS TIME. AGREEABLE TO MILK OF MAG LAST BM WAS "LIKE 2 TO 3 WEEKS AGO". PATIENT STATES THIS IS NOT "ABNORMAL" FOR HIM. SAFETY MEASURES IN PLACE INCLUDING BED IN LOW POSITION AND CALL LIGHT RESTING NEXT TO R ARM. NO APPARENT DISTRESS NOTED. WILL CONTINUE WITH PLAN OF CARE.
--- NOTE | 2024-11-06 09:55 | NUR ---
PATIENT TAKEN TO TX VIA FOR A SHOWER. VITAL SIGNS STABLE. HR PER EKG AT 0948: 101. WILL CONTINUE WITH PLAN OF CARE.
--- NOTE | 2024-11-06 12:19 | NUR ---
PATIENT SITTING UP IN BED. DENIES ISSUES OR CONCERNS AT THIS TIME. AFEBRILE 97.9. NO APPARENT DISTRESS NOTED. WILL CONTINUE WITH PLAN OF CARE.
[2024-11-06] MEDS ORDERED: JARDIANCE10 MG PO (12:32)
[2024-11-06] MEDS ORDERED: LASIX20 MG PO (12:32)
--- NOTE | 2024-11-06 14:21 | NUR ---
Discharge instructions given. Patient verbalizes understanding of same. Discharged in stable condition via Taxi to Home with tAXI STAFF . All belongings sent with pt.
== END 2024-11-06 14:21 | disposition home or self-care (01) ==
LOC: ED 18:09 → ED-I 21:13 → ED 21:27 → ICU 21:28
PROVIDERS: Nurse Practitioner; ADMIT Internal Medicine; ATTEND Internal Medicine
DX: I48.91 Unspecified atrial fibrillation (principal); N17.9 Acute kidney failure, unspecified; I13.0 Hypertensive heart and chronic kidney disease with heart failure and stage 1 through stage 4 chronic kidney disease, or unspecified chronic kidney disease; E11.22 Type 2 diabetes mellitus with diabetic chronic kidney disease; I50.9 Heart failure, unspecified; N18.9 Chronic kidney disease, unspecified; J43.9 Emphysema, unspecified; I25.10 Atherosclerotic heart disease of native coronary artery without angina pectoris; G40.909 Epilepsy, unspecified, not intractable, without status epilepticus; N40.0 Benign prostatic hyperplasia without lower urinary tract symptoms; Z95.1 Presence of aortocoronary bypass graft; Z79.84 Long term (current) use of oral hypoglycemic drugs; Z79.01 Long term (current) use of anticoagulants; Z95.5 Presence of coronary angioplasty implant and graft
CPT/HCPCS: J1815